=== PATIENT | female | born 1935 | race Caucasian/White ===

== ENCOUNTER 2021-07-28 16:12 | Inpatient (IN) | payer MEDICARE ==
[2021-07-29] MEDS ORDERED: ACETAMINOPHEN 325 MG TAB PO PRN (01:47)
[2021-07-29] MEDS ORDERED: MELATONIN 5 MG TAB PO PRN (01:49)
[2021-07-29] MEDS: traZODone 50 MG TAB PO SCH ×2 (03:36→22:08)
--- NOTE | 2021-07-29 08:09 | History and Physical Report ---
GP History & Physical - History of Present Illness Date of admission: 07/28/21 Date of Examination: 07/29/21 Reason for Admission: Danger to self, Failure of Outpatient Treatment Chief Complaint: suicidal ideation/OD History of Present Illness: The patient is an 85 year old female with history of anxiety disorder who was admitted from [facility] on 1012 for an intentional overdose on Klonopin. The patient was seen today. She is calm, alert and oriented x2 and cooperative. The patient presents with generalized bruises including a black eye. The patient did not want to discuss the event of her recent overdose but states " I wanted to get out of the home." Per note, " the patient overdosed on klonopin after an argument with her daughter." She denies any current suicidal/homicidal ideation and denies hallucinations. PAST PSYCHIATRIC HISTORY: Diagnoses:Anxiety Suicide attempts or Self-harm behavior: Yes- recent Prior psychiatric hospitalizations: Yes- Substance Abuse history:Denies Previous psychiatric medications tried: Klonopin, Trazodone Outpatient treatment: Unknown PAST MEDICAL HISTORY: unknown Family Psychiatric History: None reported or documented SOCIAL HISTORY Marital Status: Single Living Arrangements: Lives in an assisted living Employment Status: Retired Access to guns/weapons:Denies Education:College History of Abuse:denies Legal History: Denies REVIEW OF SYSTEMS Constitutional: Negative for weight loss ENT: Negative for stridor Respiratory: Negative for cough or hemoptysis All other systems reviewed and are negative MENTAL STATUS EXAMINATION General Appearance and Behavior: Age appropriate, good hygiene, wearing appropriate clothes. calm, cooperative Cooperation: Cooperative Psychomotor Behavior: Psychomotor normal Mood:Depressed Affect and affective range: Congruent with stated mood Thought Process: Goal directed Thought Content:Reality oriented Speech: Normal Suicidal Ideation: Denies Homicidal Ideation: Denies Hallucinations: Denies Delusions:Denies Impulse Control: Limited Insight and Judgment: Limited insight and fair judgment Memory: Limited Attention: distracted Orientation: a/o x 3 Assessment (1)Major depressive disorder (2) Current Visit: Yes Status: Acute Treatment Plan Patient admitted for inpatient psychiatric evaluation, medication adjustment an d close monitoring The patient's behavior, mood, sleep and appetite will be closely monitored. Patient enrolled in individual and group therapeutic sessions and encouraged to attend. Patient provided with a safe and structured environment. Patient's physical health needs will be addressed by the Hospitalist. Hospitalist Consulted Labs including CBC, CMP, Lipid profile and Hemoglobin A1C levels ordered for baseline reference Social Assessment will be completed and the Associate Professor Of Medicine will work with patient and family to ensure a suitable and safe disposition Medication adjustment will be made as clinically indicated Continue home medications Usual Wellness [place]ism/Preservation: - Start Trazodone 50 mg po QHS & 50 mg po QHS PRN between 10 PM & 2 AM for i nsomnia - Start Melatonin 5 mg po QHS to promote circadian rhythm The patient agreed on the treatment plan, understood the risk, benefit, alternative treatment, potential consequence of no treatment, and gave informed consent. Estimated days:7 Post hospital care: primary care provider, psychiatric provider Case staffed with Dr. Diggs Legal Status: Voluntary Medications and Allergies Allergies Allergy/AdvReac Type Severity Reaction Status Date / Time No Known Drug Allergies Allergy Unknown Verified 07/29/21 01:30 Home Medications Medication Instructions Recorded Confirmed Last Taken Type Aspirin [[place] Aspirin EC] 81 mg PO DAILY 07/29/21 07/29/21 Unknown History Calcium Carbonate/Mag Carb 400 mg PO BID 07/29/21 07/29/21 Unknown History [Magnebind 400 Tablet] Calcium Carbonate/Vitamin D3 1 each PO DAILY 07/29/21 07/29/21 Unknown History [Calcium 600-Vit D3 400 Tablet] Ferrous Sulfate [Iron 325 MG] 325 mg PO DAILY 07/29/21 07/29/21 Unknown History Lisinopril [Zestril] 5 mg PO DAILY 07/29/21 07/29/21 Unknown History Pantoprazole [Protonix] 40 mg PO QDAY 07/29/21 07/29/21 Unknown History Simvastatin 40 mg PO HS 07/29/21 07/29/21 Unknown History clonazePAM [Klonopin] 1 mg PO BID 07/29/21 07/29/21 Unknown History Active Meds: Active Medications Acetaminophen (Acetaminophen 325 Mg Tab) 650 mg PO Q6H PRN PRN Reason: Pain, Mild (1-3) Aspirin (Aspirin Ec 81 Mg Tab) 81 mg PO DAILY [facility] Ferrous Sulfate (Ferrous Sulfate 325 Mg Tab) 325 mg PO DAILY [facility] Lisinopril (Lisinopril 5 Mg Tab) 5 mg PO DAILY [facility] Melatonin (Melatonin 5 Mg Tab) 5 mg PO QHS PRN PRN Reason: Sleep Miscellaneous Medication (Simvastatin [Simvastatin]) 40 mg PO HS [facility] Miscellaneous Medication (Calcium Carbonate/Vitamin D3 [Calcium 600-Vit D3 400 Tablet]) 1 each PO DAILY [facility] Pantoprazole Sodium (Pantoprazole 40 Mg Tab) 40 mg PO QDAY [facility] Trazodone HCl (Trazodone 50 Mg Tab) 50 mg PO QHS [facility] Last Admin: 07/29/21 03:36 Dose: Not Given Results - Results Labs/Vitals: Last Vital Signs Temp 97.8 F 07/29/21 01:30 Pulse 92 H 07/29/21 01:30 Resp 07/29/21 01:30 BP 102/74 07/29/21 01:30 Pulse Ox 96 07/29/21 01:30 Physical Examination - Constitutional Vitals: Vital Signs Temp Pulse Resp BP Pulse Ox 97.8 F 92 H 17 102/74 96 07/29/21 01:30 07/29/21 01:30 07/29/21 01:30 07/29/21 01:30 07/29/21 01:30 Temperature -Last 24 Hours Temperature 97.8 F Mental Status Exam - Vital signs Last Vital Signs Temp 97.8 F 07/29/21 01:30 Pulse 92 H 07/29/21 01:30 Resp 07/29/21 01:30 BP 102/74 07/29/21 01:30 Pulse Ox 96 07/29/21 01:30 Physician Certification - Certification Statement Physician Certification Statement: This is an acknowledgement statement that TAYLOR SUNSHINE is a 85 year old F who requires inpatient psychiatric admission for treatment which could reasonably be expected to improve the patient's condition for Estimated period of time patient will need to remain in the hospital: [ ] Plan for post-hospital care: [ ]
[2021-07-29] MEDS ORDERED: VITAMIN D3 PO SCH (10:00)
[2021-07-29] MEDS ORDERED: CALCIUM CARBONATE PO SCH (10:00)
[2021-07-29] MEDS ORDERED: [UNRECOGNIZED DRUG - OTHER] PO SCH (10:00)
[2021-07-29] MEDS: LISINOPRIL 5 MG TAB PO SCH (10:13)
[2021-07-29] MEDS: ASPIRIN EC 81 MG TAB PO SCH (10:13)
[2021-07-29] MEDS: FERROUS SULFATE 325 MG TAB PO SCH (10:13)
[2021-07-29] MEDS: CALCIUM CARBONATE/VITAMIN D3 500 MG-200 UNIT TAB PO SCH (10:14)
[2021-07-29] MEDS: PANTOPRAZOLE 40 MG TAB PO SCH (10:14)
[2021-07-29] MEDS ORDERED: MAGNESIUM HYDROXIDE (MOM) ORAL LIQD UDC PO PRN (17:30)
--- NOTE | 2021-07-29 21:03 | Consultation ---
History of Present Illness - Reason for Consult Consult date: 07/29/21 Medical management Requesting physician: MA[facility] - History of Present Illness Very pleasant 85-year-old female patient with significant past medical history of hypertension, dyslipidemia, anxiety disorder, depression, was admitted to [facility] with intentional overdose on Klonopin and history of fall with multiple bruises including contusion supra orbital area of the right eye with superficial small abrasions. For further evaluation and management Hospitalist service was consulted for medical management Past History Past Medical History: hypertension, hyperlipidemia, other (Depression, anxiety) Past Surgical History: No surgical history Social history: smoking (Ex-smoker). denies: alcohol abuse, prescription drug abuse Family history: no significant family history Medications and Allergies Allergies Allergy/AdvReac Type Severity Reaction Status Date / Time No Known Drug Allergies Allergy Unknown Verified 07/29/21 01:30 Home Medications Medication Instructions Recorded Confirmed Last Taken Type Aspirin [[place] Aspirin EC] 81 mg PO DAILY 07/29/21 07/29/21 Unknown History Calcium Carbonate/Mag Carb 400 mg PO BID 07/29/21 07/29/21 Unknown History [Magnebind 400 Tablet] Calcium Carbonate/Vitamin D3 1 each PO DAILY 07/29/21 07/29/21 Unknown History [Calcium 600-Vit D3 400 Tablet] Ferrous Sulfate [Iron 325 MG] 325 mg PO DAILY 07/29/21 07/29/21 Unknown History Lisinopril [Zestril] 5 mg PO DAILY 07/29/21 07/29/21 Unknown History Pantoprazole [Protonix] 40 mg PO QDAY 07/29/21 07/29/21 Unknown History Simvastatin 40 mg PO HS 07/29/21 07/29/21 Unknown History clonazePAM [Klonopin] 1 mg PO BID 07/29/21 07/29/21 Unknown History Active Meds: Active Medications Acetaminophen (Acetaminophen 325 Mg Tab) 650 mg PO Q6H PRN PRN Reason: Pain, Mild (1-3) Aspirin (Aspirin Ec 81 Mg Tab) 81 mg PO DAILY [facility] Last Admin: 07/29/21 10:13 Dose: 81 mg Calcium/Vitamin D (Calcium Carbonate/Vitamin D3 500 Mg-200 Unit Tab) 1 each PO DAILY [facility] Last Admin: 07/29/21 10:14 Dose: 1 each Docusate Sodium (Docusate Sodium 100 Mg Cap) 100 mg PO QDAY [facility] Ferrous Sulfate (Ferrous Sulfate 325 Mg Tab) 325 mg PO DAILY [facility] Last Admin: 07/29/21 10:13 Dose: 325 mg Lisinopril (Lisinopril 5 Mg Tab) 5 mg PO DAILY [facility] Last Admin: 07/29/21 10:13 Dose: Not Given Magnesium Hydroxide (Magnesium Hydroxide (Mom) Oral Liqd Udc) 30 ml PO QDAY PRN PRN Reason: Constipation Melatonin (Melatonin 5 Mg Tab) 5 mg PO QHS PRN PRN Reason: Sleep Pantoprazole Sodium (Pantoprazole 40 Mg Tab) 40 mg PO QDAY [facility] Last Admin: 07/29/21 10:14 Dose: 40 mg Pravastatin Sodium (Pravastatin 80 Mg Tab) 80 mg PO QHS [facility] Trazodone HCl (Trazodone 50 Mg Tab) 50 mg PO QHS [facility] Last Admin: 07/29/21 03:36 Dose: Not Given Review of Systems Constitutional: fatigue, weakness, no weight loss, no weight gain Ears, nose, mouth and throat: no nasal congestion, no nasal discharge Cardiovascular: no chest pain, no shortness of breath Respiratory: no cough, no shortness of breath Gastrointestinal: no abdominal pain, no nausea, no vomiting Musculoskeletal: no myalgias, no arthritis Integumentary: wounds (Right supra orbital area contusion), no rash Neurological: head injury, other (Falls) Psychiatric: anxiety, depression Endocrine: no cold intolerance, no heat intolerance Hematologic/Lymphatic: no easy bruising, no easy bleeding Allergic/Immunologic: no urticaria, no allergic rhinitis Exam - Constitutional Vitals: Temp Pulse Resp BP Pulse Ox 97.8 F 96 H 17 104/51 96 07/29/21 01:30 07/29/21 10:13 07/29/21 01:30 07/29/21 10:13 07/29/21 01:30 General appearance: Present: no acute distress, well-nourished, other (Contusion right eyebrow) - EENT Eyes: Present: PERRL, EOM intact - Neck Neck: Present: supple, normal ROM - Respiratory Respiratory effort: normal Respiratory: bilateral: diminished, negative: rales, rhonchi, wheezing - Cardiovascular Rhythm: regular Heart Sounds: Present: S1 & S2 - Extremities Extremities: no ischemia, No edema - Abdominal General gastrointestinal: Present: soft, non-tender, non-distended, normal bowel sounds - Integumentary Integumentary: Present: clear, warm - Musculoskeletal Musculoskeletal: strength equal bilaterally - Psychiatric Psychiatric: appropriate mood/affect, cooperative - Neurologic Neurologic: moves all extremities Results - Labs CBC & Chem 7: 07/30/21 19:18 07/30/21 19:18 Assessment and Plan --Hypertension; well controlled Continue current antihypertensives As needed medications --S/P fall; Fall precautions, supportive care --Right supraorbital contusion; Wound care as needed Pain medications -Dyslipidemia-; Lipid-lowering medications Low-cholesterol diet -- Depression Current Visit: Yes Status: Acute Management per psych -- Anxiety Current Visit: Yes Status: Acute Management per psych -- Vascular dementia with behavioral disturbance Current Visit: Yes Status: Acute Continue supportive care --Cerebral atherosclerosis Current Visit: Yes Status: Acute Risk factor reduction, antiplatelet therapy is clinically indicated. --DVT prophylaxis ; SCDs while resting Ambulate as tolerated We will closely monitor the patient and adjust management as needed Plan of care reviewed with the patient and her nurse Thank you for this consult We will follow the patient along with you Call us with questions
[2021-07-29] MEDS ORDERED: NON-FORMULARY EACH (Simvastatin [Simvastatin] 40 MG Tablet) PO SCH (22:00)
[2021-07-29] MEDS: PRAVASTATIN 80 MG TAB PO SCH (22:08)
--- NOTE | 2021-07-30 09:34 | Progress Note ---
Subjective Date of service: 07/30/21 Subjective Comment: 07/30/21:The patient was seen this morning. The patient is crying and asking about what happened to her face " who did this to my face." The patient endorsed depression and is confused. She denies any current suicidal/homicidal ideation and denies hallucinations. REVIEW OF SYSTEMS Constitutional: Negative for weight loss ENT: Negative for stridor Respiratory: Negative for cough or hemoptysis All other systems reviewed and are negative MENTAL STATUS EXAMINATION General Appearance and Behavior: Age appropriate, good hygiene, wearing appropriate clothes. calm, cooperative Cooperation: Cooperative Psychomotor Behavior: Psychomotor normal Mood:Depressed/ confused Affect and affective range: Congruent with stated mood Thought Process: Goal directed Thought Content:Reality oriented Speech: Normal Suicidal Ideation: Denies Homicidal Ideation: Denies Hallucinations: Denies Delusions:Denies Impulse Control: Limited Insight and Judgment: Limited insight and fair judgment Memory: Limited Attention: distracted Orientation: a/o x 3 Assessment (1)Major depressive disorder (2) Current Visit: Yes Status: Acute Treatment Plan Patient admitted for inpatient psychiatric evaluation, medication adjustment and close monitoring The patient's behavior, mood, sleep and appetite will be closely monitored. Patient enrolled in individual and group therapeutic sessions and encouraged to attend. Patient provided with a safe and structured environment. Patient's physical health needs will be addressed by the Hospitalist. Hospitalist Consulted Labs including CBC, CMP, Lipid profile and Hemoglobin A1C levels ordered for baseline reference Social Assessment will be completed and the Boxcar Weigher will work with patient and family to ensure a suitable and safe disposition Medication adjustment will be made as clinically indicated Continue home medications Start Effexor 37.5mg po daily Start Vistaril 25mg po Q6H PRN for anxiety Usual Wellness [place]/Preservation: - Start Trazodone 50 mg po QHS & 50 mg po QHS PRN between 10 PM & 2 AM for insomnia - Start Melatonin 5 mg po QHS to promote circadian rhythm The patient agreed on the treatment plan, understood the risk, benefit, alternative treatment, potential consequence of no treatment, and gave informed consent. Estimated days:6 Post hospital care: primary care provider, psychiatric provider Case staffed with Dr. Diggs Legal Status: Voluntary Medications and Allergies Medications and Allergies Allergies Allergy/AdvReac Type Severity Reaction Status Date / Time No Known Drug Allergies Allergy Unknown Verified 07/29/21 01:30 Home Medications Medication Instructions Recorded Confirmed Last Taken Type Aspirin [[place] Aspirin EC] 81 mg PO DAILY 07/29/21 07/29/21 Unknown History Calcium Carbonate/Mag Carb 400 mg PO BID 07/29/21 07/29/21 Unknown History [Magnebind 400 Tablet] Calcium Carbonate/Vitamin D3 1 each PO DAILY 07/29/21 07/29/21 Unknown History [Calcium 600-Vit D3 400 Tablet] Ferrous Sulfate [Iron 325 MG] 325 mg PO DAILY 07/29/21 07/29/21 Unknown History Lisinopril [Zestril] 5 mg PO DAILY 07/29/21 07/29/21 Unknown History Pantoprazole [Protonix] 40 mg PO QDAY 07/29/21 07/29/21 Unknown History Simvastatin 40 mg PO HS 07/29/21 07/29/21 Unknown History clonazePAM [Klonopin] 1 mg PO BID 07/29/21 07/29/21 Unknown History Active Meds: Active Medications Acetaminophen (Acetaminophen 325 Mg Tab) 650 mg PO Q6H PRN PRN Reason: Pain, Mild (1-3) Aspirin (Aspirin Ec 81 Mg Tab) 81 mg PO DAILY [facility] Last Admin: 07/29/21 10:13 Dose: 81 mg Calcium/Vitamin D (Calcium Carbonate/Vitamin D3 500 Mg-200 Unit Tab) 1 each PO DAILY [facility] Last Admin: 07/29/21 10:14 Dose: 1 each Docusate Sodium (Docusate Sodium 100 Mg Cap) 100 mg PO QDAY [facility] Ferrous Sulfate (Ferrous Sulfate 325 Mg Tab) 325 mg PO DAILY [facility] Last Admin: 07/29/21 10:13 Dose: 325 mg Lisinopril (Lisinopril 5 Mg Tab) 5 mg PO DAILY [facility] Last Admin: 07/29/21 10:13 Dose: Not Given Magnesium Hydroxide (Magnesium Hydroxide (Mom) Oral Liqd Udc) 30 ml PO QDAY PRN PRN Reason: Constipation Melatonin (Melatonin 5 Mg Tab) 5 mg PO QHS PRN PRN Reason: Sleep Pantoprazole Sodium (Pantoprazole 40 Mg Tab) 40 mg PO QDAY [facility] Last Admin: 07/29/21 10:14 Dose: 40 mg Pravastatin Sodium (Pravastatin 80 Mg Tab) 80 mg PO QHS [facility] Last Admin: 07/29/21 22:08 Dose: 80 mg Trazodone HCl (Trazodone 50 Mg Tab) 50 mg PO QHS [facility] Last Admin: 07/29/21 22:08 Dose: Not Given Results - Results Labs/Vitals: Last Vital Signs Temp 98.8 F 07/29/21 22:00 Pulse 76 07/29/21 22:00 Resp 20 07/29/21 22:00 BP 86/43 07/29/21 21:30 Pulse Ox 100 07/29/21 22:00
[2021-07-30] MEDS ORDERED: hydrOXYzine PAMOATE 25 MG CAP PO PRN (10:00)
[2021-07-30] MEDS: ASPIRIN EC 81 MG TAB PO SCH (10:54)
[2021-07-30] MEDS: FERROUS SULFATE 325 MG TAB PO SCH (10:54)
[2021-07-30] MEDS: DOCUSATE SODIUM 100 MG CAP PO SCH (10:54)
[2021-07-30] MEDS: PANTOPRAZOLE 40 MG TAB PO SCH (10:55)
[2021-07-30] MEDS: CALCIUM CARBONATE/VITAMIN D3 500 MG-200 UNIT TAB PO SCH (10:55)
[2021-07-30] MEDS: LISINOPRIL 5 MG TAB PO SCH (10:56)
[2021-07-30] MEDS: VENLAFAXINE 37.5 MG TAB PO SCH (11:22)
--- NOTE | 2021-07-30 17:52 | Event Note ---
Date: 07/30/21 Attempted to reach Patient's son Dr. Desai @[phone] and also daughter Cintia @ [phone]- no response but I left a message.
[2021-07-30 18:34] LABS: Bilirubin,Urine NEG (Negative); Blood,Urine NEG (Negative); Color,Urine Yellow (Yellow); Mucus,Urine FEW /HPF; Protein,Urine <15 mg/dL mg/dL (Negative); Urobilinogen,Urine < 2.0 mg/dL (<2.0)
[2021-07-30 20:21] LABS: Basophils # (Auto) 0.1 K/mm3 (0.0-0.1); Basophils % (Auto) 1.1 % (0.0-1.8); Eosinophils # (Auto) 0.3 K/mm3 (0.0-0.4); Eosinophils % (Auto) 3.9 % (0.0-4.3); Lymphocytes # (Auto) 1.4 K/mm3 (1.2-5.4); Mean Corpuscular HGB Conc 30 % (30-34); Monocytes # (Auto) 0.7 K/mm3 (0.0-0.8); Monocytes % (Auto) 8.8 % (0.0-7.3); Platelet Count 712 K/mm3 (140-440); Red Blood Count 5.11 M/mm3 (3.65-5.03); Red Cell Distribution Width 19.6 % (13.2-15.2)
[2021-07-30 20:24] LABS: Hematocrit 34.7 % (30.3-42.9); Hemoglobin 10.3 gm/dl (10.1-14.3); Mean Corpuscular Volume 68 fl (79-97)
[2021-07-30 20:42] LABS: Albumin 3.9 g/dL (3.9-5); Calcium 10.2 mg/dL (8.4-10.2)
[2021-07-30] MEDS: traZODone 50 MG TAB PO SCH (21:40)
[2021-07-30] MEDS: PRAVASTATIN 80 MG TAB PO SCH (21:40)
--- NOTE | 2021-07-31 08:49 | Progress Note ---
Subjective Date of service: 07/31/21 Subjective Comment: 07/30/21:The patient was seen this morning. The patient is crying and asking about what happened to her face " who did this to my face." The patient endorsed depression and is confused. She denies any current suicidal/homicidal ideation a nd denies hallucinations. 07/31/21: The patient was seen this morning. She presents in good spirits. She states sleep as fair. The patient denies being depressed or having excessive anxiety. The patient denies any current suicidal/homicidal ideation and denies hallucinations. This technical publications writer spoke with the patient's son Aby and he agrees with the current treatment plan. Plan to discharge by Wednesday. REVIEW OF SYSTEMS Constitutional: Negative for weight loss ENT: Negative for stridor Respiratory: Negative for cough or hemoptysis All other systems reviewed and are negative MENTAL STATUS EXAMINATION General Appearance and Behavior: Age appropriate, good hygiene, wearing appropriate clothes. calm, cooperative Cooperation: Cooperative Psychomotor Behavior: Psychomotor normal Mood:"ok Affect and affective range: Congruent with stated mood Thought Process: Goal directed Thought Content:Reality oriented Speech: Normal Suicidal Ideation: Denies Homicidal Ideation: Denies Hallucinations: Denies Delusions:Denies Impulse Control: Limited Insight and Judgment: Limited insight and fair judgment Memory: Limited Attention: distracted Orientation: a/o x 3 Assessment (1)Major depressive disorder (2) Current Visit: Yes Status: Acute Treatment Plan Patient admitted for inpatient psychiatric evaluation, medication adjustment and close monitoring The patient's behavior, mood, sleep and appetite will be closely monitored. Patient enrolled in individual and group therapeutic sessions and encouraged to attend. Patient provided with a safe and structured environment. Patient's physical health needs will be addressed by the Hospitalist. Hospitalist Consulted Labs including CBC, CMP, Lipid profile and Hemoglobin A1C levels ordered for baseline reference Social Assessment will be completed and the Production Assistant will work with patient and family to ensure a suitable and safe disposition Medication adjustment will be made as clinically indicated Continue home medications Continue Effexor 37.5mg po daily Continue Vistaril 25mg po Q6H PRN for anxiety Usual Wellness Tenriism/Preservation: - Start Trazodone 50 mg po QHS & 50 mg po QHS PRN between 10 PM & 2 AM for insomnia - Start Melatonin 5 mg po QHS to promote circadian rhythm The patient agreed on the treatment plan, understood the risk, benefit, alternative treatment, potential consequence of no treatment, and gave informed consent. Estimated days:5 Post hospital care: primary care provider, psychiatric provider Case staffed with Dr. Diggs Legal Status: Voluntary Medications and Allergies Medications and Allergies Allergies Allergy/AdvReac Type Severity Reaction Status Date / Time No Known Drug Allergies Allergy Unknown Verified 07/29/21 01:30 Home Medications Medication Instructions Recorded Confirmed Last Taken Type Aspirin [[place] Aspirin EC] 81 mg PO DAILY 07/29/21 07/29/21 Unknown History Calcium Carbonate/Mag Carb 400 mg PO BID 07/29/21 07/29/21 Unknown History [Magnebind 400 Tablet] Calcium Carbonate/Vitamin D3 1 each PO DAILY 07/29/21 07/29/21 Unknown History [Calcium 600-Vit D3 400 Tablet] Ferrous Sulfate [Iron 325 MG] 325 mg PO DAILY 07/29/21 07/29/21 Unknown History Lisinopril [Zestril] 5 mg PO DAILY 07/29/21 07/29/21 Unknown History Pantoprazole [Protonix] 40 mg PO QDAY 07/29/21 07/29/21 Unknown History Simvastatin 40 mg PO HS 07/29/21 07/29/21 Unknown History clonazePAM [Klonopin] 1 mg PO BID 07/29/21 07/29/21 Unknown History Active Meds: Active Medications Acetaminophen (Acetaminophen 325 Mg Tab) 650 mg PO Q6H PRN PRN Reason: Pain, Mild (1-3) Aspirin (Aspirin Ec 81 Mg Tab) 81 mg PO DAILY [facility] Last Admin: 07/30/21 10:54 Dose: 81 mg Calcium/Vitamin D (Calcium Carbonate/Vitamin D3 500 Mg-200 Unit Tab) 1 each PO DAILY [facility] Last Admin: 07/30/21 10:55 Dose: 1 each Docusate Sodium (Docusate Sodium 100 Mg Cap) 100 mg PO QDAY [facility] Last Admin: 07/30/21 10:54 Dose: 100 mg Ferrous Sulfate (Ferrous Sulfate 325 Mg Tab) 325 mg PO DAILY [facility] Last Admin: 07/30/21 10:54 Dose: 325 mg Hydroxyzine Pamoate (Hydroxyzine Pamoate 25 Mg Cap) 25 mg PO Q6H PRN PRN Reason: Anxiety Lisinopril (Lisinopril 5 Mg Tab) 5 mg PO DAILY [facility] Last Admin: 07/30/21 10:56 Dose: Not Given Magnesium Hydroxide (Magnesium Hydroxide (Mom) Oral Liqd Udc) 30 ml PO QDAY PRN PRN Reason: Constipation Melatonin (Melatonin 5 Mg Tab) 5 mg PO QHS PRN PRN Reason: Sleep Pantoprazole Sodium (Pantoprazole 40 Mg Tab) 40 mg PO QDAY [facility] Last Admin: 07/30/21 10:55 Dose: 40 mg Pravastatin Sodium (Pravastatin 80 Mg Tab) 80 mg PO QHS [facility] Last Admin: 07/30/21 21:40 Dose: 80 mg Trazodone HCl (Trazodone 50 Mg Tab) 50 mg PO QHS [facility] Last Admin: 07/30/21 21:40 Dose: 50 mg Venlafaxine HCl (Venlafaxine 37.5 Mg Tab) 37.5 mg PO DAILY [facility] Last Admin: 07/30/21 11:22 Dose: 37.5 mg Results - Results Labs/Vitals: Laboratory Last Values WBC 8.1 K/mm3 (4.5-11.0) 07/30/21 19:18 RBC 5.11 M/mm3 (3.65-5.03) H 07/30/21 19:18 Hgb 10.3 gm/dl (10.1-14.3) 07/30/21 19:18 Hct 34.7 % (30.3-42.9) 07/30/21 19:18 MCV 68 fl (79-97) L 07/30/21 19:18 MCH 20 pg (28-32) L 07/30/21 19:18 MCHC 30 % (30-34) 07/30/21 19:18 RDW 19.6 % (13.2-15.2) H 07/30/21 19:18 Plt Count 712 K/mm3 (140-440) H 07/30/21 19:18 Lymph % (Auto) 17.0 % (13.4-35.0) 07/30/21 19:18 [place] % (Auto) 8.8 % (0.0-7.3) H 07/30/21 19:18 Eos % (Auto) 3.9 % (0.0-4.3) 07/30/21 19:18 Baso % (Auto) 1.1 % (0.0-1.8) 07/30/21 19:18 Lymph # (Auto) 1.4 K/mm3 (1.2-5.4) 07/30/21 19:18 [place] # (Auto) 0.7 K/mm3 (0.0-0.8) 07/30/21 19:18 Eos # (Auto) 0.3 K/mm3 (0.0-0.4) 07/30/21 19:18 Baso # (Auto) 0.1 K/mm3 (0.0-0.1) 07/30/21 19:18 Seg Neutrophils % 69.2 % (40.0-70.0) 07/30/21 19:18 Seg Neutrophils # 5.6 K/mm3 (1.8-7.7) 07/30/21 19:18 Sodium 142 mmol/L (137-145) 07/30/21 19:18 Potassium 4.2 mmol/L (3.6-5.0) 07/30/21 19:18 Chloride 102.7 mmol/L (98-107) 07/30/21 19:18 Carbon Dioxide 25 mmol/L (22-30) 07/30/21 19:18 Anion Gap 19 mmol/L 07/30/21 19:18 BUN 44 mg/dL (7-17) H 07/30/21 19:18 Creatinine 1.2 mg/dL (0.6-1.2) 07/30/21 19:18 Estimated GFR 43 ml/min 07/30/21 19:18 BUN/Creatinine Ratio 37 % 07/30/21 19:18 Glucose 105 mg/dL (65-100) H 07/30/21 19:18 Hemoglobin A1c 5.6 % (4-6) 07/30/21 19:18 Calcium 10.2 mg/dL (8.4-10.2) 07/30/21 19:18 Total Bilirubin 0.40 mg/dL (0.1-1.2) 07/30/21 19:18 AST 25 units/L (5-40) 07/30/21 19:18 ALT 19 units/L (7-56) 07/30/21 19:18 Alkaline Phosphatase 69 units/L (35-129) 07/30/21 19:18 Total Protein 6.4 g/dL (6.3-8.2) 07/30/21 19:18 Albumin 3.9 g/dL (3.9-5) 07/30/21 19:18 Albumin/Globulin Ratio 1.6 % 07/30/21 19:18 TSH 1.330 mlU/mL (0.270-4.200) 07/30/21 19:18 Urine Color Yellow (Yellow) 07/30/21 17: Urine Turbidity Clear (Clear) 07/30/21 17: Urine pH 5.0 (5.0-7.0) 07/30/21 17: Ur Specific [place] 1.017 (1.003-1.030) 07/30/21 17: Urine Protein <15 mg/dl mg/dL (Negative) 07/30/21 17: Urine Glucose (UA) Neg mg/dL (Negative) 07/30/21 17: Urine Ketones Neg mg/dL (Negative) 07/30/21 17: Urine Blood Neg (Negative) 07/30/21 17: Urine Nitrite Neg (Negative) 07/30/21: Ur Reducing Substances Not Reportable 07/30/21 17: Urine Bilirubin Neg (Negative) 07/30/21 17: Urine Ictotest Not Reportable 07/30/21: Urine Urobilinogen < 2.0 mg/dL (<2.0) 07/30/21 17: Ur Leukocyte Esterase Tr (Negative) 07/30/21 17: Urine WBC (Auto) 7.0 /HPF (0.0-6.0) H 07/30/21 17: Urine RBC (Auto) 2.0 /HPF (0.0-6.0) 07/30/21: U Epithel Cells (Auto) < 1.0 /HPF (0-13.0) 07/30/21 17: Urine Mucus Few /HPF 07/30/21 17:23 Last Vital Signs Temp 98.4 F 07/30/21 20:17 Pulse 85 07/30/21 20:17 Resp 16 07/30/21 20:17 BP 92/65 07/30/21 20:17 Pulse Ox 96 07/30/21 20:17
[2021-07-31] MEDS: LISINOPRIL 5 MG TAB PO SCH (09:20)
[2021-07-31] MEDS: CALCIUM CARBONATE/VITAMIN D3 500 MG-200 UNIT TAB PO SCH (09:20)
[2021-07-31] MEDS: PANTOPRAZOLE 40 MG TAB PO SCH (09:20)
[2021-07-31] MEDS: ASPIRIN EC 81 MG TAB PO SCH (09:20)
[2021-07-31] MEDS: VENLAFAXINE 37.5 MG TAB PO SCH (09:20)
[2021-07-31] MEDS: FERROUS SULFATE 325 MG TAB PO SCH (09:20)
[2021-07-31] MEDS: DOCUSATE SODIUM 100 MG CAP PO SCH (09:24)
--- NOTE | 2021-07-31 10:22 | Progress Note ---
Assessment and Plan - Patient Problems (1) Vascular dementia with behavioral disturbance Current Visit: Yes Status: Acute Plan to address problem: Verbal prompting, verbal redirection, benzodiazepine therapy as clinically indicated. (2) Cerebral atherosclerosis Current Visit: Yes Status: Acute Plan to address problem: Risk factor reduction, antiplatelet therapy is clinically indicated. (3) Depression Current Visit: Yes Status: Acute Plan to address problem: Continue medical management, supportive care. (4) Anxiety Current Visit: Yes Status: Acute Plan to address problem: Benzodiazepine therapy as clinically indicated, supportive care. (5) Advance care planning Current Visit: Yes Status: Acute Plan to address problem: Disease restaging data, care plan discussed, diagnosis discussed, prognosis discussed, +30 minutes. History Interval history: 85 YO Female with Vascular Dementia with Behavioral disturbance, Cerebral Atheroaclerosis, MDD, JOHNATHAN admitted to [facility] for Psychiatric stabilization. Consult placed by Dr. Santos for medical management. Pt seen and evaluated in the recreation room. No reported nursing events. Patient denies pain. Hospitalist Physical - Constitutional Vitals: Temp Pulse Resp BP Pulse Ox 98.9 F 87 18 146/73 94 07/31/21 08:19 07/31/21 09:20 07/31/21 08:19 07/31/21 09:20 07/31/21 08:19 General appearance: Present: no acute distress - EENT Eyes: Present: PERRL ENT: dentition normal - Neck Neck: Present: supple - Respiratory Respiratory effort: normal Respiratory: bilateral: CTA - Cardiovascular Rhythm: regular Heart Sounds: Present: S1 & S2 - Extremities Extremities: no ischemia Peripheral Pulses: within normal limits - Abdominal General gastrointestinal: soft, non-tender, non-distended - Integumentary Integumentary: Present: clear, dry - Psychiatric Psychiatric: cooperative - Neurologic Neurologic: CNII-XII intact Results - Labs CBC & Chem 7: 07/30/21 19:18 07/30/21 19:18 Labs: Laboratory Last Values WBC 8.1 K/mm3 (4.5-11.0) 07/30/21 19:18 RBC 5.11 M/mm3 (3.65-5.03) H 07/30/21 19:18 Hgb 10.3 gm/dl (10.1-14.3) 07/30/21 19:18 Hct 34.7 % (30.3-42.9) 07/30/21 19:18 MCV 68 fl (79-97) L 07/30/21 19:18 MCH 20 pg (28-32) L 07/30/21 19:18 MCHC 30 % (30-34) 07/30/21 19:18 RDW 19.6 % (13.2-15.2) H 07/30/21 19:18 Plt Count 712 K/mm3 (140-440) H 07/30/21 19:18 Lymph % (Auto) 17.0 % (13.4-35.0) 07/30/21 19:18 [place] % (Auto) 8.8 % (0.0-7.3) H 07/30/21 19:18 Eos % (Auto) 3.9 % (0.0-4.3) 07/30/21 19:18 Baso % (Auto) 1.1 % (0.0-1.8) 07/30/21 19:18 Lymph # (Auto) 1.4 K/mm3 (1.2-5.4) 07/30/21 19:18 [place] # (Auto) 0.7 K/mm3 (0.0-0.8) 07/30/21 19:18 Eos # (Auto) 0.3 K/mm3 (0.0-0.4) 07/30/21 19:18 Baso # (Auto) 0.1 K/mm3 (0.0-0.1) 07/30/21 19:18 Seg Neutrophils % 69.2 % (40.0-70.0) 07/30/21 19:18 Seg Neutrophils # 5.6 K/mm3 (1.8-7.7) 07/30/21 19:18 Sodium 142 mmol/L (137-145) 07/30/21 19:18 Potassium 4.2 mmol/L (3.6-5.0) 07/30/21 19:18 Chloride 102.7 mmol/L (98-107) 07/30/21 19:18 Carbon Dioxide 25 mmol/L (22-30) 07/30/21 19:18 Anion Gap 19 mmol/L 07/30/21 19:18 BUN 44 mg/dL (7-17) H 07/30/21 19:18 Creatinine 1.2 mg/dL (0.6-1.2) 07/30/21 19:18 Estimated GFR 43 ml/min 07/30/21 19:18 BUN/Creatinine Ratio 37 % 07/30/21 19:18 Glucose 105 mg/dL (65-100) H 07/30/21 19:18 Hemoglobin A1c 5.6 % (4-6) 07/30/21 19:18 Calcium 10.2 mg/dL (8.4-10.2) 07/30/21 19:18 Total Bilirubin 0.40 mg/dL (0.1-1.2) 07/30/21 19:18 AST 25 units/L (5-40) 07/30/21 19:18 ALT 19 units/L (7-56) 07/30/21 19:18 Alkaline Phosphatase 69 units/L (35-129) 07/30/21 19:18 Total Protein 6.4 g/dL (6.3-8.2) 07/30/21 19:18 Albumin 3.9 g/dL (3.9-5) 07/30/21 19:18 Albumin/Globulin Ratio 1.6 % 07/30/21 19:18 TSH 1.330 mlU/mL (0.270-4.200) 07/30/21 19:18 Urine Color Yellow (Yellow) 07/30/21 17:23 Urine Turbidity Clear (Clear) 07/30/21 17:23 Urine pH 5.0 (5.0-7.0) 07/30/21 17:23 Ur Specific [place] 1.017 (1.003-1.030) 07/30/21 17: Urine Protein <15 mg/dl mg/dL (Negative) 07/30/21 17:23 Urine Glucose (UA) Neg mg/dL (Negative) 07/30/21 17:23 Urine Ketones Neg mg/dL (Negative) 07/30/21 17: Urine Blood Neg (Negative) 07/30/21 17: Urine Nitrite Neg (Negative) 07/30/21 17: Ur Reducing Substances Not Reportable 07/30/21 17: Urine Bilirubin Neg (Negative) 07/30/21: Urine Ictotest Not Reportable 07/30/21: Urine Urobilinogen < 2.0 mg/dL (<2.0) 07/30/21 17:23 Ur Leukocyte Esterase Tr (Negative) 07/30/21 17:23 Urine WBC (Auto) 7.0 /HPF (0.0-6.0) H 07/30/21 17:23 Urine RBC (Auto) 2.0 /HPF (0.0-6.0) 07/30/21 17:23 U Epithel Cells (Auto) < 1.0 /HPF (0-13.0) 07/30/21 17:23 Urine Mucus Few /HPF 07/30/21 17:23 Rushing/IV: Voiding Method Toilet Active Medications - Current Medications Current Medications: Generic Name Dose Route Start Last Admin Trade Name Freq PRN Reason Stop Dose Admin Acetaminophen 650 mg 07/29/21 01:47 Acetaminophen 325 Mg Tab PO Q6H PRN Pain, Mild (1-3) Aspirin 81 mg 07/29/21 10:00 07/31/21 09:20 Aspirin Ec 81 Mg Tab PO 81 mg DAILY [facility] Administration Calcium/Vitamin D 1 each 07/29/21 10:00 07/31/21 09:20 Calcium Carbonate/Vitamin D3 500 Mg-200 Unit Tab PO 1 each DAILY [facility] Administration Docusate Sodium 100 mg 07/30/21 10:00 07/31/21 09:24 Docusate Sodium 100 Mg Cap PO Not Given QDAY [facility] Ferrous Sulfate 325 mg 07/29/21 10:00 07/31/21 09:20 Ferrous Sulfate 325 Mg Tab PO 325 mg DAILY [facility] Administration Hydroxyzine Pamoate 25 mg 07/30/21 10:00 Hydroxyzine Pamoate 25 Mg Cap PO Q6H PRN Anxiety Lisinopril 5 mg 07/29/21 10:00 07/31/21 09:20 Lisinopril 5 Mg Tab PO 5 mg DAILY [facility] Administration Magnesium Hydroxide 30 ml 07/29/21 17:30 Magnesium Hydroxide (Mom) Oral Liqd Udc PO QDAY PRN Constipation Melatonin 5 mg 07/29/21 01:49 Melatonin 5 Mg Tab PO QHS PRN Sleep Pantoprazole Sodium 40 mg 07/29/21 10:00 07/31/21 09:20 Pantoprazole 40 Mg Tab PO 40 mg QDAY [facility] Administration Pravastatin Sodium 80 mg 07/29/21 22:00 07/30/21 21:40 Pravastatin 80 Mg Tab PO 80 mg QHS [facility] Administration Trazodone HCl 50 mg 07/29/21 01:49 07/30/21 21:40 Trazodone 50 Mg Tab PO 50 mg QHS [facility] Administration Venlafaxine HCl 37.5 mg 07/30/21 11:00 07/31/21 09:20 Venlafaxine 37.5 Mg Tab PO 37.5 mg DAILY [facility] Administration
--- NOTE | 2021-07-31 10:26 | Progress Note ---
Assessment and Plan - Patient Problems (1) Vascular dementia with behavioral disturbance Current Visit: Yes Status: Acute Plan to address problem: Verbal prompting, verbal redirection, benzodiazepine therapy as clinically indicated. (2) Cerebral atherosclerosis Current Visit: Yes Status: Acute Plan to address problem: Risk factor reduction, antiplatelet therapy is clinically indicated. (3) Depression Current Visit: Yes Status: Acute Plan to address problem: Continue medical management, supportive care. (4) Anxiety Current Visit: Yes Status: Acute Plan to address problem: Benzodiazepine therapy as clinically indicated, supportive care. (5) Advance care planning Current Visit: Yes Status: Acute Plan to address problem: Disease restaging data, care plan discussed, diagnosis discussed, prognosis discussed, +30 minutes. History Interval history: 85 YO Female with Vascular Dementia with Behavioral disturbance, Cerebral Atheroaclerosis, MDD, JOHNATHAN admitted to [facility] for Psychiatric stabilization. Consult placed by Dr. Santos for medical management. Pt seen and evaluated in the recreation room. No reported nursing events. Patient denies pain. Hospitalist Physical - Constitutional Vitals: Temp Pulse Resp BP Pulse Ox 98.9 F 87 18 146/73 94 07/31/21 08:19 07/31/21 09:20 07/31/21 08:19 07/31/21 09:20 07/31/21 08:19 General appearance: Present: no acute distress - EENT Eyes: Present: PERRL ENT: hearing decreased - Neck Neck: Present: supple - Respiratory Respiratory effort: normal Respiratory: bilateral: CTA - Cardiovascular Rhythm: regular Heart Sounds: Present: S1 & S2 - Extremities Extremities: no ischemia Peripheral Pulses: within normal limits - Abdominal General gastrointestinal: soft, non-tender, non-distended - Integumentary Integumentary: Present: clear, dry - Psychiatric Psychiatric: cooperative - Neurologic Neurologic: CNII-XII intact Results - Labs CBC & Chem 7: 07/30/21 19:18 07/30/21 19:18 Labs: Laboratory Last Values WBC 8.1 K/mm3 (4.5-11.0) 07/30/21 19:18 RBC 5.11 M/mm3 (3.65-5.03) H 07/30/21 19:18 Hgb 10.3 gm/dl (10.1-14.3) 07/30/21 19:18 Hct 34.7 % (30.3-42.9) 07/30/21 19:18 MCV 68 fl (79-97) L 07/30/21 19:18 MCH 20 pg (28-32) L 07/30/21 19:18 MCHC 30 % (30-34) 07/30/21 19:18 RDW 19.6 % (13.2-15.2) H 07/30/21 19:18 Plt Count 712 K/mm3 (140-440) H 07/30/21 19:18 Lymph % (Auto) 17.0 % (13.4-35.0) 07/30/21 19:18 [place] % (Auto) 8.8 % (0.0-7.3) H 07/30/21 19:18 Eos % (Auto) 3.9 % (0.0-4.3) 07/30/21 19:18 Baso % (Auto) 1.1 % (0.0-1.8) 07/30/21 19:18 Lymph # (Auto) 1.4 K/mm3 (1.2-5.4) 07/30/21 19:18 [place] # (Auto) 0.7 K/mm3 (0.0-0.8) 07/30/21 19:18 Eos # (Auto) 0.3 K/mm3 (0.0-0.4) 07/30/21 19:18 Baso # (Auto) 0.1 K/mm3 (0.0-0.1) 07/30/21 19:18 Seg Neutrophils % 69.2 % (40.0-70.0) 07/30/21 19:18 Seg Neutrophils # 5.6 K/mm3 (1.8-7.7) 07/30/21 19:18 Sodium 142 mmol/L (137-145) 07/30/21 19:18 Potassium 4.2 mmol/L (3.6-5.0) 07/30/21 19:18 Chloride 102.7 mmol/L (98-107) 07/30/21 19:18 Carbon Dioxide 25 mmol/L (22-30) 07/30/21 19:18 Anion Gap 19 mmol/L 07/30/21 19:18 BUN 44 mg/dL (7-17) H 07/30/21 19:18 Creatinine 1.2 mg/dL (0.6-1.2) 07/30/21 19:18 Estimated GFR 43 ml/min 07/30/21 19:18 BUN/Creatinine Ratio 37 % 07/30/21 19:18 Glucose 105 mg/dL (65-100) H 07/30/21 19:18 Hemoglobin A1c 5.6 % (4-6) 07/30/21 19:18 Calcium 10.2 mg/dL (8.4-10.2) 07/30/21 19:18 Total Bilirubin 0.40 mg/dL (0.1-1.2) 07/30/21 19:18 AST 25 units/L (5-40) 07/30/21 19:18 ALT 19 units/L (7-56) 07/30/21 19:18 Alkaline Phosphatase 69 units/L (35-129) 07/30/21 19:18 Total Protein 6.4 g/dL (6.3-8.2) 07/30/21 19:18 Albumin 3.9 g/dL (3.9-5) 07/30/21 19:18 Albumin/Globulin Ratio 1.6 % 07/30/21 19:18 TSH 1.330 mlU/mL (0.270-4.200) 07/30/21 19:18 Urine Color Yellow (Yellow) 07/30/21 17:23 Urine Turbidity Clear (Clear) 07/30/21 17: Urine pH 5.0 (5.0-7.0) 07/30/21 17:23 Ur Specific [place] 1.017 (1.003-1.030) 07/30/21 17: Urine Protein <15 mg/dl mg/dL (Negative) 07/30/21 17:23 Urine Glucose (UA) Neg mg/dL (Negative) 07/30/21 17:23 Urine Ketones Neg mg/dL (Negative) 07/30/21 17: Urine Blood Neg (Negative) 07/30/21 17: Urine Nitrite Neg (Negative) 07/30/21 17:23 Ur Reducing Substances Not Reportable 07/30/21 17: Urine Bilirubin Neg (Negative) 07/30/21 17: Urine Ictotest Not Reportable 07/30/21: Urine Urobilinogen < 2.0 mg/dL (<2.0) 07/30/21 17:23 Ur Leukocyte Esterase Tr (Negative) 07/30/21 17:23 Urine WBC (Auto) 7.0 /HPF (0.0-6.0) H 07/30/21 17:23 Urine RBC (Auto) 2.0 /HPF (0.0-6.0) 07/30/21 17:23 U Epithel Cells (Auto) < 1.0 /HPF (0-13.0) 07/30/21 17:23 Urine Mucus Few /HPF 07/30/21 17:23 Rushing/IV: Voiding Method Toilet Active Medications - Current Medications Current Medications: Generic Name Dose Route Start Last Admin Trade Name Freq PRN Reason Stop Dose Admin Acetaminophen 650 mg 07/29/21 01:47 Acetaminophen 325 Mg Tab PO Q6H PRN Pain, Mild (1-3) Aspirin 81 mg 07/29/21 10:00 07/31/21 09:20 Aspirin Ec 81 Mg Tab PO 81 mg DAILY [facility] Administration Calcium/Vitamin D 1 each 07/29/21 10:00 07/31/21 09:20 Calcium Carbonate/Vitamin D3 500 Mg-200 Unit Tab PO 1 each DAILY [facility] Administration Docusate Sodium 100 mg 07/30/21 10:00 07/31/21 09:24 Docusate Sodium 100 Mg Cap PO Not Given QDAY [facility] Ferrous Sulfate 325 mg 07/29/21 10:00 07/31/21 09:20 Ferrous Sulfate 325 Mg Tab PO 325 mg DAILY [facility] Administration Hydroxyzine Pamoate 25 mg 07/30/21 10:00 Hydroxyzine Pamoate 25 Mg Cap PO Q6H PRN Anxiety Lisinopril 5 mg 07/29/21 10:00 07/31/21 09:20 Lisinopril 5 Mg Tab PO 5 mg DAILY [facility] Administration Magnesium Hydroxide 30 ml 07/29/21 17:30 Magnesium Hydroxide (Mom) Oral Liqd Udc PO QDAY PRN Constipation Melatonin 5 mg 07/29/21 01:49 Melatonin 5 Mg Tab PO QHS PRN Sleep Miscellaneous Medication 400 mg 07/31/21 22:00 Calcium Carbonate/Mag Carb [Magnebind 400 Tablet] PO BID [facility] Miscellaneous Medication 1 mg 07/31/21 22:00 Clonazepam [Klonopin] PO BID [facility] Pantoprazole Sodium 40 mg 07/29/21 10:00 07/31/21 09:20 Pantoprazole 40 Mg Tab PO 40 mg QDAY [facility] Administration Pravastatin Sodium 80 mg 07/29/21 22:00 07/30/21 21:40 Pravastatin 80 Mg Tab PO 80 mg QHS [facility] Administration Trazodone HCl 50 mg 07/29/21 01:49 07/30/21 21:40 Trazodone 50 Mg Tab PO 50 mg QHS [facility] Administration Venlafaxine HCl 37.5 mg 07/30/21 11:00 07/31/21 09:20 Venlafaxine 37.5 Mg Tab PO 37.5 mg DAILY [facility] Administration
[2021-07-31] MEDS: clonazePAM 0.5 MG TAB PO SCH (21:23)
[2021-07-31] MEDS: traZODone 50 MG TAB PO SCH (21:24)
[2021-07-31] MEDS: PRAVASTATIN 80 MG TAB PO SCH (21:24)
[2021-07-31] MEDS ORDERED: MAG CARB PO SCH (22:00)
[2021-07-31] MEDS ORDERED: NON-FORMULARY EACH (Clonazepam [Klonopin] 1 MG Tablet) PO SCH (22:00)
[2021-07-31] MEDS ORDERED: CALCIUM CARBONATE PO SCH (22:00)
--- NOTE | 2021-08-01 08:44 | Progress Note ---
Subjective Date of service: 08/01/21 Principal diagnosis: MDD Subjective Comment: The patient was seen today. She is confused. She is calm, cooperative and pleasant. She is sitting in the dayroom reading a book. She says "I'm doing fine" when asked. She denies SI/HI or hallucinations of any kind. Staff says the patient has some difficulty sleeping. Although the patient currently denies SI. She had a recent suicidal attempt by OD. Will continue to treat and monitor her to ensure safety upon discharge. REVIEW OF SYSTEMS Constitutional: Negative for weight loss ENT: Negative for stridor Respiratory: Negative for cough or hemoptysis All other systems reviewed and are negative MENTAL STATUS EXAMINATION General Appearance and Behavior: Age appropriate, good hygiene, wearing appropriate clothes. calm, cooperative, pleasant Cooperation: Cooperative Psychomotor Behavior: Psychomotor normal Mood: fine Affect and affective range: Congruent with stated mood Thought Process: impaired Thought Content: Reality oriented Speech: Normal tone and pace Suicidal Ideation: Denies Homicidal Ideation: Denies Hallucinations: Denies Delusions: None elicited Impulse Control: Limited Insight and Judgment: Limited insight and fair judgment Memory: Limited Attention: attentive Orientation: confused Assessment (1)Major depressive disorder Current Visit: Yes Status: Acute Treatment Plan Patient admitted for inpatient psychiatric evaluation, medication adjustment and close monitoring The patient's behavior, mood, sleep and appetite will be closely monitored. Patient enrolled in individual and group therapeutic sessions and encouraged to attend. Patient provided with a safe and structured environment. Patient's physical health needs will be addressed by the Hospitalist. Hospitalist Consulted Labs including CBC, CMP, Lipid profile and Hemoglobin A1C levels ordered for baseline reference Social Assessment will be completed and the Rib Sawyer will work with patient and family to ensure a suitable and safe disposition Medication adjustment will be made as clinically indicated Increase Trazodone 75mg po qhs Usual Wellness Congregational/Preservation: - Start Trazodone 50 mg po QHS & 50 mg po QHS PRN between 10 PM & 2 AM for insomnia - Start Melatonin 5 mg po QHS to promote circadian rhythm The patient agreed on the treatment plan, understood the risk, benefit, alternative treatment, potential consequence of no treatment, and gave informed consent. Estimated days:5 Post hospital care: primary care provider, psychiatric provider Case staffed with Dr. Diggs Medications and Allergies Allergies Allergy/AdvReac Type Severity Reaction Status Date / Time No Known Drug Allergies Allergy Unknown Verified 07/29/21 01:30 Home Medications Medication Instructions Recorded Confirmed Last Taken Type Aspirin [[place] Aspirin EC] 81 mg PO DAILY 07/29/21 07/29/21 Unknown History Calcium Carbonate/Mag Carb 400 mg PO BID 07/29/21 07/29/21 Unknown History [Magnebind 400 Tablet] Calcium Carbonate/Vitamin D3 1 each PO DAILY 07/29/21 07/29/21 Unknown History [Calcium 600-Vit D3 400 Tablet] Ferrous Sulfate [Iron 325 MG] 325 mg PO DAILY 07/29/21 07/29/21 Unknown History Lisinopril [Zestril] 5 mg PO DAILY 07/29/21 07/29/21 Unknown History Pantoprazole [Protonix] 40 mg PO QDAY 07/29/21 07/29/21 Unknown History Simvastatin 40 mg PO HS 07/29/21 07/29/21 Unknown History clonazePAM [Klonopin] 1 mg PO BID 07/29/21 07/29/21 Unknown History Active Meds: Active Medications Acetaminophen (Acetaminophen 325 Mg Tab) 650 mg PO Q6H PRN PRN Reason: Pain, Mild (1-3) Aspirin (Aspirin Ec 81 Mg Tab) 81 mg PO DAILY [facility] Last Admin: 07/31/21 09:20 Dose: 81 mg Calcium/Vitamin D (Calcium Carbonate/Vitamin D3 500 Mg-200 Unit Tab) 1 each PO DAILY [facility] Last Admin: 07/31/21 09:20 Dose: 1 each Clonazepam (Clonazepam 0.5 Mg Tab) 1 mg PO BID [facility] Last Admin: 07/31/21 21:23 Dose: 1 mg Docusate Sodium (Docusate Sodium 100 Mg Cap) 100 mg PO QDAY [facility] Last Admin: 07/31/21 09:24 Dose: Not Given Ferrous Sulfate (Ferrous Sulfate 325 Mg Tab) 325 mg PO DAILY [facility] Last Admin: 07/31/21 09:20 Dose: 325 mg Hydroxyzine Pamoate (Hydroxyzine Pamoate 25 Mg Cap) 25 mg PO Q6H PRN PRN Reason: Anxiety Lisinopril (Lisinopril 5 Mg Tab) 5 mg PO DAILY [facility] Last Admin: 07/31/21 09:20 Dose: 5 mg Magnesium Hydroxide (Magnesium Hydroxide (Mom) Oral Liqd Udc) 30 ml PO QDAY PRN PRN Reason: Constipation Melatonin (Melatonin 5 Mg Tab) 5 mg PO QHS PRN PRN Reason: Sleep Pantoprazole Sodium (Pantoprazole 40 Mg Tab) 40 mg PO QDAY [facility] Last Admin: 07/31/21 09:20 Dose: 40 mg Pravastatin Sodium (Pravastatin 80 Mg Tab) 80 mg PO QHS [facility] Last Admin: 07/31/21 21:24 Dose: 80 mg Trazodone HCl (Trazodone 50 Mg Tab) 50 mg PO QHS [facility] Last Admin: 07/31/21 21:24 Dose: 50 mg Venlafaxine HCl (Venlafaxine 37.5 Mg Tab) 37.5 mg PO DAILY [facility] Last Admin: 07/31/21 09:20 Dose: 37.5 mg Results - Results Labs/Vitals: Laboratory Last Values WBC 8.1 K/mm3 (4.5-11.0) 07/30/21 19:18 RBC 5.11 M/mm3 (3.65-5.03) H 07/30/21 19:18 Hgb 10.3 gm/dl (10.1-14.3) 07/30/21 19:18 Hct 34.7 % (30.3-42.9) 07/30/21 19:18 MCV 68 fl (79-97) L 07/30/21 19:18 MCH 20 pg (28-32) L 07/30/21 19:18 MCHC 30 % (30-34) 07/30/21 19:18 RDW 19.6 % (13.2-15.2) H 07/30/21 19:18 Plt Count 712 K/mm3 (140-440) H 07/30/21 19:18 Lymph % (Auto) 17.0 % (13.4-35.0) 07/30/21 19:18 [place] % (Auto) 8.8 % (0.0-7.3) H 07/30/21 19:18 Eos % (Auto) 3.9 % (0.0-4.3) 07/30/21 19:18 Baso % (Auto) 1.1 % (0.0-1.8) 07/30/21 19:18 Lymph # (Auto) 1.4 K/mm3 (1.2-5.4) 07/30/21 19:18 [place] # (Auto) 0.7 K/mm3 (0.0-0.8) 07/30/21 19:18 Eos # (Auto) 0.3 K/mm3 (0.0-0.4) 07/30/21 19:18 Baso # (Auto) 0.1 K/mm3 (0.0-0.1) 07/30/21 19:18 Seg Neutrophils % 69.2 % (40.0-70.0) 07/30/21 19:18 Seg Neutrophils # 5.6 K/mm3 (1.8-7.7) 07/30/21 19:18 Sodium 142 mmol/L (137-145) 07/30/21 19:18 Potassium 4.2 mmol/L (3.6-5.0) 07/30/21 19:18 Chloride 102.7 mmol/L (98-107) 07/30/21 19:18 Carbon Dioxide 25 mmol/L (22-30) 07/30/21 19:18 Anion Gap 19 mmol/L 07/30/21 19:18 BUN 44 mg/dL (7-17) H 07/30/21 19:18 Creatinine 1.2 mg/dL (0.6-1.2) 07/30/21 19:18 Estimated GFR 43 ml/min 07/30/21 19:18 BUN/Creatinine Ratio 37 % 07/30/21 19:18 Glucose 105 mg/dL (65-100) H 07/30/21 19:18 Hemoglobin A1c 5.6 % (4-6) 07/30/21 19:18 Calcium 10.2 mg/dL (8.4-10.2) 07/30/21 19:18 Total Bilirubin 0.40 mg/dL (0.1-1.2) 07/30/21 19:18 AST 25 units/L (5-40) 07/30/21 19:18 ALT 19 units/L (7-56) 07/30/21 19:18 Alkaline Phosphatase 69 units/L (35-129) 07/30/21 19:18 Total Protein 6.4 g/dL (6.3-8.2) 07/30/21 19:18 Albumin 3.9 g/dL (3.9-5) 07/30/21 19:18 Albumin/Globulin Ratio 1.6 % 07/30/21 19:18 TSH 1.330 mlU/mL (0.270-4.200) 07/30/21 19:18 Urine Color Yellow (Yellow) 07/30/21 17: Urine Turbidity Clear (Clear) 07/30/21 17: Urine pH 5.0 (5.0-7.0) 07/30/21 17: Ur Specific [place] 1.017 (1.003-1.030) 07/30/21: Urine Protein <15 mg/dl mg/dL (Negative) 07/30/21: Urine Glucose (UA) Neg mg/dL (Negative) 07/30/21 17: Urine Ketones Neg mg/dL (Negative) 07/30/21: Urine Blood Neg (Negative) 07/30/21: Urine Nitrite Neg (Negative) 07/30/21: Ur Reducing Substances Not Reportable 07/30/21: Urine Bilirubin Neg (Negative) 07/30/21: Urine Ictotest Not Reportable 07/30/21: Urine Urobilinogen < 2.0 mg/dL (<2.0) 07/30/21 17:23 Ur Leukocyte Esterase Tr (Negative) 07/30/21 17: Urine WBC (Auto) 7.0 /HPF (0.0-6.0) H 07/30/21 17: Urine RBC (Auto) 2.0 /HPF (0.0-6.0) 07/30/21: U Epithel Cells (Auto) < 1.0 /HPF (0-13.0) 07/30/21: Urine Mucus Few /HPF 07/30/21 17:23 Last Vital Signs Temp 98.4 F 07/31/21 19:31 Pulse 87 07/31/21 19:31 Resp 17 07/31/21 19:31 BP 143/80 07/31/21 19:31 Pulse Ox 92 07/31/21 19:31
[2021-08-01] MEDS: VENLAFAXINE 37.5 MG TAB PO SCH (09:24)
[2021-08-01] MEDS: FERROUS SULFATE 325 MG TAB PO SCH (09:24)
[2021-08-01] MEDS: CALCIUM CARBONATE/VITAMIN D3 500 MG-200 UNIT TAB PO SCH (09:25)
[2021-08-01] MEDS: PANTOPRAZOLE 40 MG TAB PO SCH (09:25)
[2021-08-01] MEDS: DOCUSATE SODIUM 100 MG CAP PO SCH (09:25)
[2021-08-01] MEDS: LISINOPRIL 5 MG TAB PO SCH (09:25)
[2021-08-01] MEDS: clonazePAM 0.5 MG TAB PO SCH ×2 (09:25→21:06)
[2021-08-01] MEDS: ASPIRIN EC 81 MG TAB PO SCH (09:25)
--- NOTE | 2021-08-01 12:01 | Event Note ---
Date: 08/01/21 Spoke with the patient's son about the patient's progress, treatment plan and discharge plan. He agreed with the treatment plan, and was happy to hear that his mother was doing better. He says he's ready to get her home. I informed him that she would be discharged on Wednesday, and we were monitoring her to ensure her safety since she had a recent suicidal attempt. He was in full agreement of this. He say he can pick his mother up Wednesday around 2 pm.
--- NOTE | 2021-08-01 12:12 | Progress Note ---
Assessment and Plan - Patient Problems (1) Vascular dementia with behavioral disturbance Current Visit: Yes Status: Acute Plan to address problem: Verbal prompting, verbal redirection, benzodiazepine therapy as clinically indicated. (2) Cerebral atherosclerosis Current Visit: Yes Status: Acute Plan to address problem: Risk factor reduction, antiplatelet therapy is clinically indicated. (3) Depression Current Visit: Yes Status: Acute Plan to address problem: Continue medical management, supportive care. (4) Anxiety Current Visit: Yes Status: Acute Plan to address problem: Benzodiazepine therapy as clinically indicated, supportive care. (5) Advance care planning Current Visit: Yes Status: Acute Plan to address problem: Disease restaging data, care plan discussed, diagnosis discussed, prognosis discussed, +30 minutes. History Interval history: 85 YO Female with Vascular Dementia with Behavioral disturbance, Cerebral Atheroaclerosis, MDD, JOHNATHAN admitted to [facility] for Psychiatric stabilization. Consult placed by Dr. Santos for medical management. Pt seen and evaluated in the recreation room. No reported nursing events. Patient denies pain. Hospitalist Physical - Constitutional Vitals: Temp Pulse Resp BP Pulse Ox 98.4 F 87 17 143/80 92 07/31/21 19:31 07/31/21 19:31 07/31/21 19:31 07/31/21 19:31 07/31/21 19:31 General appearance: Present: no acute distress - EENT Eyes: Present: PERRL ENT: hearing intact - Neck Neck: Present: supple - Respiratory Respiratory effort: normal Respiratory: bilateral: CTA - Cardiovascular Rhythm: regular Heart Sounds: Present: S1 & S2 - Extremities Extremities: no ischemia Peripheral Pulses: within normal limits - Abdominal General gastrointestinal: soft, non-tender, non-distended - Integumentary Integumentary: Present: clear, dry - Psychiatric Psychiatric: cooperative - Neurologic Neurologic: CNII-XII intact Results - Labs CBC & Chem 7: 07/30/21 19:18 07/30/21 19:18 Labs: Laboratory Last Values WBC 8.1 K/mm3 (4.5-11.0) 07/30/21 19:18 RBC 5.11 M/mm3 (3.65-5.03) H 07/30/21 19:18 Hgb 10.3 gm/dl (10.1-14.3) 07/30/21 19:18 Hct 34.7 % (30.3-42.9) 07/30/21 19:18 MCV 68 fl (79-97) L 07/30/21 19:18 MCH 20 pg (28-32) L 07/30/21 19:18 MCHC 30 % (30-34) 07/30/21 19:18 RDW 19.6 % (13.2-15.2) H 07/30/21 19:18 Plt Count 712 K/mm3 (140-440) H 07/30/21 19:18 Lymph % (Auto) 17.0 % (13.4-35.0) 07/30/21 19:18 [place] % (Auto) 8.8 % (0.0-7.3) H 07/30/21 19:18 Eos % (Auto) 3.9 % (0.0-4.3) 07/30/21 19:18 Baso % (Auto) 1.1 % (0.0-1.8) 07/30/21 19:18 Lymph # (Auto) 1.4 K/mm3 (1.2-5.4) 07/30/21 19:18 [place] # (Auto) 0.7 K/mm3 (0.0-0.8) 07/30/21 19:18 Eos # (Auto) 0.3 K/mm3 (0.0-0.4) 07/30/21 19:18 Baso # (Auto) 0.1 K/mm3 (0.0-0.1) 07/30/21 19:18 Seg Neutrophils % 69.2 % (40.0-70.0) 07/30/21 19:18 Seg Neutrophils # 5.6 K/mm3 (1.8-7.7) 07/30/21 19:18 Sodium 142 mmol/L (137-145) 07/30/21 19:18 Potassium 4.2 mmol/L (3.6-5.0) 07/30/21 19:18 Chloride 102.7 mmol/L (98-107) 07/30/21 19:18 Carbon Dioxide 25 mmol/L (22-30) 07/30/21 19:18 Anion Gap 19 mmol/L 07/30/21 19:18 BUN 44 mg/dL (7-17) H 07/30/21 19:18 Creatinine 1.2 mg/dL (0.6-1.2) 07/30/21 19:18 Estimated GFR 43 ml/min 07/30/21 19:18 BUN/Creatinine Ratio 37 % 07/30/21 19:18 Glucose 105 mg/dL (65-100) H 07/30/21 19:18 Hemoglobin A1c 5.6 % (4-6) 07/30/21 19:18 Calcium 10.2 mg/dL (8.4-10.2) 07/30/21 19:18 Total Bilirubin 0.40 mg/dL (0.1-1.2) 07/30/21 19:18 AST 25 units/L (5-40) 07/30/21 19:18 ALT 19 units/L (7-56) 07/30/21 19:18 Alkaline Phosphatase 69 units/L (35-129) 07/30/21 19:18 Total Protein 6.4 g/dL (6.3-8.2) 07/30/21 19:18 Albumin 3.9 g/dL (3.9-5) 07/30/21 19:18 Albumin/Globulin Ratio 1.6 % 07/30/21 19:18 TSH 1.330 mlU/mL (0.270-4.200) 07/30/21 19:18 Urine Color Yellow (Yellow) 07/30/21 17:23 Urine Turbidity Clear (Clear) 07/30/21 17: Urine pH 5.0 (5.0-7.0) 07/30/21 17:23 Ur Specific [place] 1.017 (1.003-1.030) 07/30/21 17: Urine Protein <15 mg/dl mg/dL (Negative) 07/30/21 17:23 Urine Glucose (UA) Neg mg/dL (Negative) 07/30/21 17:23 Urine Ketones Neg mg/dL (Negative) 07/30/21 17: Urine Blood Neg (Negative) 07/30/21 17: Urine Nitrite Neg (Negative) 07/30/21 17:23 Ur Reducing Substances Not Reportable 07/30/21 17: Urine Bilirubin Neg (Negative) 07/30/21 17: Urine Ictotest Not Reportable 07/30/21: Urine Urobilinogen < 2.0 mg/dL (<2.0) 07/30/21 17:23 Ur Leukocyte Esterase Tr (Negative) 07/30/21 17:23 Urine WBC (Auto) 7.0 /HPF (0.0-6.0) H 07/30/21 17:23 Urine RBC (Auto) 2.0 /HPF (0.0-6.0) 07/30/21 17:23 U Epithel Cells (Auto) < 1.0 /HPF (0-13.0) 07/30/21 17:23 Urine Mucus Few /HPF 07/30/21 17:23 Rushing/IV: Voiding Method Toilet Active Medications - Current Medications Current Medications: Generic Name Dose Route Start Last Admin Trade Name Freq PRN Reason Stop Dose Admin Acetaminophen 650 mg 07/29/21 01:47 Acetaminophen 325 Mg Tab PO Q6H PRN Pain, Mild (1-3) Aspirin 81 mg 07/29/21 10:00 08/01/21 09:25 Aspirin Ec 81 Mg Tab PO 81 mg DAILY [facility] Administration Calcium/Vitamin D 1 each 07/29/21 10:00 08/01/21 09:25 Calcium Carbonate/Vitamin D3 500 Mg-200 Unit Tab PO 1 each DAILY [facility] Administration Clonazepam 1 mg 07/31/21 22:00 08/01/21 09:25 Clonazepam 0.5 Mg Tab PO Not Given BID [facility] Docusate Sodium 100 mg 07/30/21 10:00 08/01/21 09:25 Docusate Sodium 100 Mg Cap PO 100 mg QDAY [facility] Administration Ferrous Sulfate 325 mg 07/29/21 10:00 08/01/21 09:24 Ferrous Sulfate 325 Mg Tab PO 325 mg DAILY [facility] Administration Hydroxyzine Pamoate 25 mg 07/30/21 10:00 Hydroxyzine Pamoate 25 Mg Cap PO Q6H PRN Anxiety Lisinopril 5 mg 07/29/21 10:00 08/01/21 09:25 Lisinopril 5 Mg Tab PO 5 mg DAILY [facility] Administration Magnesium Hydroxide 30 ml 07/29/21 17:30 Magnesium Hydroxide (Mom) Oral Liqd Udc PO QDAY PRN Constipation Melatonin 5 mg 07/29/21 01:49 Melatonin 5 Mg Tab PO QHS PRN Sleep Pantoprazole Sodium 40 mg 07/29/21 10:00 08/01/21 09:25 Pantoprazole 40 Mg Tab PO 40 mg QDAY [facility] Administration Pravastatin Sodium 80 mg 07/29/21 22:00 07/31/21 21:24 Pravastatin 80 Mg Tab PO 80 mg QHS [facility] Administration Trazodone HCl 75 mg 08/01/21 22:00 Trazodone 50 Mg Tab PO QHS [facility] Venlafaxine HCl 37.5 mg 07/30/21 11:00 08/01/21 09:24 Venlafaxine 37.5 Mg Tab PO 37.5 mg DAILY [facility] Administration
[2021-08-01] MEDS: traZODone 50 MG TAB PO SCH (21:06)
[2021-08-01] MEDS: PRAVASTATIN 80 MG TAB PO SCH (21:06)
--- NOTE | 2021-08-02 07:33 | Progress Note ---
Hospitalist Physical - Constitutional Vitals: Temp Pulse Resp BP Pulse Ox 99.7 F H 80 16 135/77 95 08/01/21 22:00 08/01/21 22:00 08/01/21 22:00 08/01/21 22:00 08/01/21 22:00 General appearance: Present: no acute distress Results - Labs CBC & Chem 7: 07/30/21 19:18 07/30/21 19:18 Labs: Laboratory Last Values WBC 8.1 K/mm3 (4.5-11.0) 07/30/21 19:18 RBC 5.11 M/mm3 (3.65-5.03) H 07/30/21 19:18 Hgb 10.3 gm/dl (10.1-14.3) 07/30/21 19:18 Hct 34.7 % (30.3-42.9) 07/30/21 19:18 MCV 68 fl (79-97) L 07/30/21 19:18 MCH 20 pg (28-32) L 07/30/21 19:18 MCHC 30 % (30-34) 07/30/21 19:18 RDW 19.6 % (13.2-15.2) H 07/30/21 19:18 Plt Count 712 K/mm3 (140-440) H 07/30/21 19:18 Lymph % (Auto) 17.0 % (13.4-35.0) 07/30/21 19:18 [place] % (Auto) 8.8 % (0.0-7.3) H 07/30/21 19:18 Eos % (Auto) 3.9 % (0.0-4.3) 07/30/21 19:18 Baso % (Auto) 1.1 % (0.0-1.8) 07/30/21 19:18 Lymph # (Auto) 1.4 K/mm3 (1.2-5.4) 07/30/21 19:18 [place] # (Auto) 0.7 K/mm3 (0.0-0.8) 07/30/21 19:18 Eos # (Auto) 0.3 K/mm3 (0.0-0.4) 07/30/21 19:18 Baso # (Auto) 0.1 K/mm3 (0.0-0.1) 07/30/21 19:18 Seg Neutrophils % 69.2 % (40.0-70.0) 07/30/21 19:18 Seg Neutrophils # 5.6 K/mm3 (1.8-7.7) 07/30/21 19:18 Sodium 142 mmol/L (137-145) 07/30/21 19:18 Potassium 4.2 mmol/L (3.6-5.0) 07/30/21 19:18 Chloride 102.7 mmol/L (98-107) 07/30/21 19:18 Carbon Dioxide 25 mmol/L (22-30) 07/30/21 19:18 Anion Gap 19 mmol/L 07/30/21 19:18 BUN 44 mg/dL (7-17) H 07/30/21 19:18 Creatinine 1.2 mg/dL (0.6-1.2) 07/30/21 19:18 Estimated GFR 43 ml/min 07/30/21 19:18 BUN/Creatinine Ratio 37 % 07/30/21 19:18 Glucose 105 mg/dL (65-100) H 07/30/21 19:18 Hemoglobin A1c 5.6 % (4-6) 07/30/21 19:18 Calcium 10.2 mg/dL (8.4-10.2) 07/30/21 19:18 Total Bilirubin 0.40 mg/dL (0.1-1.2) 07/30/21 19:18 AST 25 units/L (5-40) 07/30/21 19:18 ALT 19 units/L (7-56) 07/30/21 19:18 Alkaline Phosphatase 69 units/L (35-129) 07/30/21 19:18 Total Protein 6.4 g/dL (6.3-8.2) 07/30/21 19:18 Albumin 3.9 g/dL (3.9-5) 07/30/21 19:18 Albumin/Globulin Ratio 1.6 % 07/30/21 19:18 TSH 1.330 mlU/mL (0.270-4.200) 07/30/21 19:18 Urine Color Yellow (Yellow) 07/30/21 17:23 Urine Turbidity Clear (Clear) 07/30/21 17:23 Urine pH 5.0 (5.0-7.0) 07/30/21 17:23 Ur Specific [place] 1.017 (1.003-1.030) 07/30/21 17: Urine Protein <15 mg/dl mg/dL (Negative) 07/30/21 17: Urine Glucose (UA) Neg mg/dL (Negative) 07/30/21 17: Urine Ketones Neg mg/dL (Negative) 07/30/21 17: Urine Blood Neg (Negative) 07/30/21 17: Urine Nitrite Neg (Negative) 07/30/21 17: Ur Reducing Substances Not Reportable 07/30/21 17: Urine Bilirubin Neg (Negative) 07/30/21 17: Urine Ictotest Not Reportable 07/30/21: Urine Urobilinogen < 2.0 mg/dL (<2.0) 07/30/21 17: Ur Leukocyte Esterase Tr (Negative) 07/30/21 17: Urine WBC (Auto) 7.0 /HPF (0.0-6.0) H 07/30/21 17: Urine RBC (Auto) 2.0 /HPF (0.0-6.0) 07/30/21: U Epithel Cells (Auto) < 1.0 /HPF (0-13.0) 07/30/21 17: Urine Mucus Few /HPF 07/30/21 17: Rushing/IV: Voiding Method Toilet Active Medications - Current Medications Current Medications: Generic Name Dose Route Start Last Admin Trade Name Freq PRN Reason Stop Dose Admin Acetaminophen 650 mg 07/29/21 01:47 Acetaminophen 325 Mg Tab PO Q6H PRN Pain, Mild (1-3) Aspirin 81 mg 07/29/21 10:00 08/01/21 09:25 Aspirin Ec 81 Mg Tab PO 81 mg DAILY [facility] Administration Calcium/Vitamin D 1 each 07/29/21 10:00 08/01/21 09:25 Calcium Carbonate/Vitamin D3 500 Mg-200 Unit Tab PO 1 each DAILY [facility] Administration Clonazepam 1 mg 07/31/21 22:00 08/01/21 21:06 Clonazepam 0.5 Mg Tab PO 1 mg BID [facility] Administration Docusate Sodium 100 mg 07/30/21 10:00 08/01/21 09:25 Docusate Sodium 100 Mg Cap PO 100 mg QDAY [facility] Administration Ferrous Sulfate 325 mg 07/29/21 10:00 08/01/21 09:24 Ferrous Sulfate 325 Mg Tab PO 325 mg DAILY [facility] Administration Hydroxyzine Pamoate 25 mg 07/30/21 10:00 Hydroxyzine Pamoate 25 Mg Cap PO Q6H PRN Anxiety Lisinopril 5 mg 07/29/21 10:00 08/01/21 09:25 Lisinopril 5 Mg Tab PO 5 mg DAILY [facility] Administration Magnesium Hydroxide 30 ml 07/29/21 17:30 Magnesium Hydroxide (Mom) Oral Liqd Udc PO QDAY PRN Constipation Melatonin 5 mg 07/29/21 01:49 08/01/21 21:06 Melatonin 5 Mg Tab PO 5 mg QHS PRN Administration Sleep Pantoprazole Sodium 40 mg 07/29/21 10:00 08/01/21 09:25 Pantoprazole 40 Mg Tab PO 40 mg QDAY [facility] Administration Pravastatin Sodium 80 mg 07/29/21 22:00 08/01/21 21:06 Pravastatin 80 Mg Tab PO 80 mg QHS [facility] Administration Trazodone HCl 75 mg 08/01/21 22:00 08/01/21 21:06 Trazodone 50 Mg Tab PO 75 mg QHS [facility] Administration Venlafaxine HCl 37.5 mg 07/30/21 11:00 08/01/21 09:24 Venlafaxine 37.5 Mg Tab PO 37.5 mg DAILY [facility] Administration
--- NOTE | 2021-08-02 07:33 | Progress Note ---
Assessment and Plan Assessment and plan: --s/p fall ; Fall precautions, supportive care Ambulate as tolerated --right supraorbital contusion; Wound care as needed Pain medications Contusion significantly improved --Hypertension; well controlled Continue current antihypertensives As needed medications --Dyslipidemia-; Lipid-lowering medications Low-cholesterol diet -- Depression Current Visit: Yes Status: Acute Management per psych -- Anxiety Current Visit: Yes Status: Acute Management per psych -- Vascular dementia with behavioral disturbance Current Visit: Yes Status: Acute Continue supportive care --Cerebral atherosclerosis Current Visit: Yes Status: Acute Risk factor reduction, antiplatelet therapy is clinically indicated. --DVT prophylaxis ; SCDs while resting Ambulate as tolerated Patient symptoms significantly improved We will monitor the patient closely And adjust the management as needed Continue current treatment as planned Plan of care reviewed with the patient and her nurse Call us with questions History Interval history: I have seen and examined the patient in psych unit Patient is sleeping in her room Easily awakens, States that she feels tired, no new complaints Hospitalist Physical - Constitutional Vitals: Temp Pulse Resp BP Pulse Ox 99.7 F H 80 16 135/77 95 08/01/21 22:00 08/01/21 22:00 08/01/21 22:00 08/01/21 22:00 08/01/21 22:00 General appearance: Present: no acute distress, well-nourished - EENT Eyes: Present: PERRL, EOM intact - Neck Neck: Present: supple, normal ROM - Respiratory Respiratory effort: normal Respiratory: bilateral: diminished, negative: rales, rhonchi, wheezing - Cardiovascular Rhythm: regular Heart Sounds: Present: S1 & S2 - Extremities Extremities: no ischemia, No edema - Abdominal General gastrointestinal: soft, non-tender, non-distended, normal bowel sounds - Integumentary Integumentary: Present: clear, warm - Psychiatric Psychiatric: appropriate mood/affect, other (Sometimes confused) - Neurologic Neurologic: moves all extremities Results - Labs CBC & Chem 7: 07/30/21 19:18 07/30/21 19:18 Labs: Laboratory Last Values WBC 8.1 K/mm3 (4.5-11.0) 07/30/21 19:18 RBC 5.11 M/mm3 (3.65-5.03) H 07/30/21 19:18 Hgb 10.3 gm/dl (10.1-14.3) 07/30/21 19:18 Hct 34.7 % (30.3-42.9) 07/30/21 19:18 MCV 68 fl (79-97) L 07/30/21 19:18 MCH 20 pg (28-32) L 07/30/21 19:18 MCHC 30 % (30-34) 07/30/21 19:18 RDW 19.6 % (13.2-15.2) H 07/30/21 19:18 Plt Count 712 K/mm3 (140-440) H 07/30/21 19:18 Lymph % (Auto) 17.0 % (13.4-35.0) 07/30/21 19:18 [place] % (Auto) 8.8 % (0.0-7.3) H 07/30/21 19:18 Eos % (Auto) 3.9 % (0.0-4.3) 07/30/21 19:18 Baso % (Auto) 1.1 % (0.0-1.8) 07/30/21 19:18 Lymph # (Auto) 1.4 K/mm3 (1.2-5.4) 07/30/21 19:18 [place] # (Auto) 0.7 K/mm3 (0.0-0.8) 07/30/21 19:18 Eos # (Auto) 0.3 K/mm3 (0.0-0.4) 07/30/21 19:18 Baso # (Auto) 0.1 K/mm3 (0.0-0.1) 07/30/21 19:18 Seg Neutrophils % 69.2 % (40.0-70.0) 07/30/21 19:18 Seg Neutrophils # 5.6 K/mm3 (1.8-7.7) 07/30/21 19:18 Sodium 142 mmol/L (137-145) 07/30/21 19:18 Potassium 4.2 mmol/L (3.6-5.0) 07/30/21 19:18 Chloride 102.7 mmol/L (98-107) 07/30/21 19:18 Carbon Dioxide 25 mmol/L (22-30) 07/30/21 19:18 Anion Gap 19 mmol/L 07/30/21 19:18 BUN 44 mg/dL (7-17) H 07/30/21 19:18 Creatinine 1.2 mg/dL (0.6-1.2) 07/30/21 19:18 Estimated GFR 43 ml/min 07/30/21 19:18 BUN/Creatinine Ratio 37 % 07/30/21 19:18 Glucose 105 mg/dL (65-100) H 07/30/21 19:18 Hemoglobin A1c 5.6 % (4-6) 07/30/21 19:18 Calcium 10.2 mg/dL (8.4-10.2) 07/30/21 19:18 Total Bilirubin 0.40 mg/dL (0.1-1.2) 07/30/21 19:18 AST 25 units/L (5-40) 07/30/21 19:18 ALT 19 units/L (7-56) 07/30/21 19:18 Alkaline Phosphatase 69 units/L (35-129) 07/30/21 19:18 Total Protein 6.4 g/dL (6.3-8.2) 07/30/21 19:18 Albumin 3.9 g/dL (3.9-5) 07/30/21 19:18 Albumin/Globulin Ratio 1.6 % 07/30/21 19:18 TSH 1.330 mlU/mL (0.270-4.200) 07/30/21 19:18 Urine Color Yellow (Yellow) 07/30/21 17:23 Urine Turbidity Clear (Clear) 07/30/21 17:23 Urine pH 5.0 (5.0-7.0) 07/30/21 17:23 Ur Specific [place] 1.017 (1.003-1.030) 07/30/21 17:23 Urine Protein <15 mg/dl mg/dL (Negative) 07/30/21 17:23 Urine Glucose (UA) Neg mg/dL (Negative) 07/30/21 17: Urine Ketones Neg mg/dL (Negative) 07/30/21 17: Urine Blood Neg (Negative) 07/30/21 17: Urine Nitrite Neg (Negative) 07/30/21 17:23 Ur Reducing Substances Not Reportable 07/30/21 17: Urine Bilirubin Neg (Negative) 07/30/21 17: Urine Ictotest Not Reportable 07/30/21 17:23 Urine Urobilinogen < 2.0 mg/dL (<2.0) 07/30/21 17:23 Ur Leukocyte Esterase Tr (Negative) 07/30/21 17:23 Urine WBC (Auto) 7.0 /HPF (0.0-6.0) H 07/30/21 17:23 Urine RBC (Auto) 2.0 /HPF (0.0-6.0) 07/30/21 17:23 U Epithel Cells (Auto) < 1.0 /HPF (0-13.0) 07/30/21 17:23 Urine Mucus Few /HPF 07/30/21 17:23 Rushing/IV: Voiding Method Toilet Active Medications - Current Medications Current Medications: Generic Name Dose Route Start Last Admin Trade Name Freq PRN Reason Stop Dose Admin Acetaminophen 650 mg 07/29/21 01:47 Acetaminophen 325 Mg Tab PO Q6H PRN Pain, Mild (1-3) Aspirin 81 mg 07/29/21 10:00 08/01/21 09:25 Aspirin Ec 81 Mg Tab PO 81 mg DAILY ANGEL Administration Calcium/Vitamin D 1 each 07/29/21 10:00 08/01/21 09:25 Calcium Carbonate/Vitamin D3 500 Mg-200 Unit Tab PO 1 each DAILY ANGEL Administration Clonazepam 1 mg 07/31/21 22:00 08/01/21 21:06 Clonazepam 0.5 Mg Tab PO 1 mg BID ANGEL Administration Docusate Sodium 100 mg 07/30/21 10:00 08/01/21 09:25 Docusate Sodium 100 Mg Cap PO 100 mg QDAY ANGEL Administration Ferrous Sulfate 325 mg 07/29/21 10:00 08/01/21 09:24 Ferrous Sulfate 325 Mg Tab PO 325 mg DAILY NAGEL Administration Hydroxyzine Pamoate 25 mg 07/30/21 10:00 Hydroxyzine Pamoate 25 Mg Cap PO Q6H PRN Anxiety Lisinopril 5 mg 07/29/21 10:00 08/01/21 09:25 Lisinopril 5 Mg Tab PO 5 mg DAILY ANGEL Administration Magnesium Hydroxide 30 ml 07/29/21 17:30 Magnesium Hydroxide (Mom) Oral Liqd Udc PO QDAY PRN Constipation Melatonin 5 mg 07/29/21 01:49 08/01/21 21:06 Melatonin 5 Mg Tab PO 5 mg QHS PRN Administration Sleep Pantoprazole Sodium 40 mg 07/29/21 10:00 08/01/21 09:25 Pantoprazole 40 Mg Tab PO 40 mg QDAY ANGEL Administration Pravastatin Sodium 80 mg 07/29/21 22:00 08/01/21 21:06 Pravastatin 80 Mg Tab PO 80 mg QHS ANGEL Administration Trazodone HCl 75 mg 08/01/21 22:00 08/01/21 21:06 Trazodone 50 Mg Tab PO 75 mg QHS ANGEL Administration Venlafaxine HCl 37.5 mg 07/30/21 11:00 08/01/21 09:24 Venlafaxine 37.5 Mg Tab PO 37.5 mg DAILY ANGEL Administration
--- NOTE | 2021-08-02 09:06 | Progress Note ---
Subjective Date of service: 08/02/21 Principal diagnosis: MDD Subjective Comment: The patient was seen today. She is sitting quietly in the dayroom. She is calm, and cooperative. She is a/o x 3. She denies SI/HI and hallucinations of any kind. The patient says she slept "straight through the night." REVIEW OF SYSTEMS Constitutional: Negative for weight loss ENT: Negative for stridor Respiratory: Negative for cough or hemoptysis All other systems reviewed and are negative MENTAL STATUS EXAMINATION General Appearance and Behavior: Age appropriate, good hygiene, wearing appropriate clothes. calm, cooperative, pleasant Cooperation: Cooperative Psychomotor Behavior: Psychomotor normal Mood: fine Affect and affective range: Congruent with stated mood Thought Process: impaired Thought Content: Reality oriented Speech: Normal tone and pace Suicidal Ideation: Denies Homicidal Ideation: Denies Hallucinations: Denies Delusions: None elicited Impulse Control: Limited Insight and Judgment: Limited insight and fair judgment Memory: Limited Attention: attentive Orientation: confused Assessment (1)Major depressive disorder Current Visit: Yes Status: Acute Treatment Plan Patient admitted for inpatient psychiatric evaluation, medication adjustment and close monitoring The patient's behavior, mood, sleep and appetite will be closely monitored. Patient enrolled in individual and group therapeutic sessions and encouraged to attend. Patient provided with a safe and structured environment. Patient's physical health needs will be addressed by the Hospitalist. Hospitalist Consulted Labs including CBC, CMP, Lipid profile and Hemoglobin A1C levels ordered for baseline reference Social Assessment will be completed and the Cloth Measurer Machine will work with patient and family to ensure a suitable and safe disposition Medication adjustment will be made as clinically indicated Increase Trazodone 75mg po qhs yesterday No changes made today Usual Wellness Hinduism/Preservation: - Start Trazodone 50 mg po QHS & 50 mg po QHS PRN between 10 PM & 2 AM for insomnia - Start Melatonin 5 mg po QHS to promote circadian rhythm The patient agreed on the treatment plan, understood the risk, benefit, alternative treatment, potential consequence of no treatment, and gave informed consent. Estimated days:5 Post hospital care: primary care provider, psychiatric provider Case staffed with Dr. Diggs Medications and Allergies Allergies Allergy/AdvReac Type Severity Reaction Status Date / Time No Known Drug Allergies Allergy Unknown Verified 07/29/21 01:30 Home Medications Medication Instructions Recorded Confirmed Last Taken Type Aspirin [[place] Aspirin EC] 81 mg PO DAILY 07/29/21 07/29/21 Unknown History Calcium Carbonate/Mag Carb 400 mg PO BID 07/29/21 07/29/21 Unknown History [Magnebind 400 Tablet] Calcium Carbonate/Vitamin D3 1 each PO DAILY 07/29/21 07/29/21 Unknown History [Calcium 600-Vit D3 400 Tablet] Ferrous Sulfate [Iron 325 MG] 325 mg PO DAILY 07/29/21 07/29/21 Unknown History Lisinopril [Zestril] 5 mg PO DAILY 07/29/21 07/29/21 Unknown History Pantoprazole [Protonix] 40 mg PO QDAY 07/29/21 07/29/21 Unknown History Simvastatin 40 mg PO HS 07/29/21 07/29/21 Unknown History clonazePAM [Klonopin] 1 mg PO BID 07/29/21 07/29/21 Unknown History Active Meds: Active Medications Acetaminophen (Acetaminophen 325 Mg Tab) 650 mg PO Q6H PRN PRN Reason: Pain, Mild (1-3) Aspirin (Aspirin Ec 81 Mg Tab) 81 mg PO DAILY [facility] Last Admin: 08/01/21 09:25 Dose: 81 mg Calcium/Vitamin D (Calcium Carbonate/Vitamin D3 500 Mg-200 Unit Tab) 1 each PO DAILY [facility] Last Admin: 08/01/21 09:25 Dose: 1 each Clonazepam (Clonazepam 0.5 Mg Tab) 1 mg PO BID [facility] Last Admin: 08/01/21 21:06 Dose: 1 mg Docusate Sodium (Docusate Sodium 100 Mg Cap) 100 mg PO QDAY [facility] Last Admin: 08/01/21 09:25 Dose: 100 mg Ferrous Sulfate (Ferrous Sulfate 325 Mg Tab) 325 mg PO DAILY [facility] Last Admin: 08/01/21 09:24 Dose: 325 mg Hydroxyzine Pamoate (Hydroxyzine Pamoate 25 Mg Cap) 25 mg PO Q6H PRN PRN Reason: Anxiety Lisinopril (Lisinopril 5 Mg Tab) 5 mg PO DAILY [facility] Last Admin: 08/01/21 09:25 Dose: 5 mg Magnesium Hydroxide (Magnesium Hydroxide (Mom) Oral Liqd Udc) 30 ml PO QDAY PRN PRN Reason: Constipation Melatonin (Melatonin 5 Mg Tab) 5 mg PO QHS PRN PRN Reason: Sleep Last Admin: 08/01/21 21:06 Dose: 5 mg Pantoprazole Sodium (Pantoprazole 40 Mg Tab) 40 mg PO QDAY [facility] Last Admin: 08/01/21 09:25 Dose: 40 mg Pravastatin Sodium (Pravastatin 80 Mg Tab) 80 mg PO QHS [facility] Last Admin: 08/01/21 21:06 Dose: 80 mg Trazodone HCl (Trazodone 50 Mg Tab) 75 mg PO QHS [facility] Last Admin: 08/01/21 21:06 Dose: 75 mg Venlafaxine HCl (Venlafaxine 37.5 Mg Tab) 37.5 mg PO DAILY [facility] Last Admin: 08/01/21 09:24 Dose: 37.5 mg Results - Results Labs/Vitals: Laboratory Last Values WBC 8.1 K/mm3 (4.5-11.0) 07/30/21 19:18 RBC 5.11 M/mm3 (3.65-5.03) H 07/30/21 19:18 Hgb 10.3 gm/dl (10.1-14.3) 07/30/21 19:18 Hct 34.7 % (30.3-42.9) 07/30/21 19:18 MCV 68 fl (79-97) L 07/30/21 19:18 MCH 20 pg (28-32) L 07/30/21 19:18 MCHC 30 % (30-34) 07/30/21 19:18 RDW 19.6 % (13.2-15.2) H 07/30/21 19:18 Plt Count 712 K/mm3 (140-440) H 07/30/21 19:18 Lymph % (Auto) 17.0 % (13.4-35.0) 07/30/21 19:18 [place] % (Auto) 8.8 % (0.0-7.3) H 07/30/21 19:18 Eos % (Auto) 3.9 % (0.0-4.3) 07/30/21 19:18 Baso % (Auto) 1.1 % (0.0-1.8) 07/30/21 19:18 Lymph # (Auto) 1.4 K/mm3 (1.2-5.4) 07/30/21 19:18 [place] # (Auto) 0.7 K/mm3 (0.0-0.8) 07/30/21 19:18 Eos # (Auto) 0.3 K/mm3 (0.0-0.4) 07/30/21 19:18 Baso # (Auto) 0.1 K/mm3 (0.0-0.1) 07/30/21 19:18 Seg Neutrophils % 69.2 % (40.0-70.0) 07/30/21 19:18 Seg Neutrophils # 5.6 K/mm3 (1.8-7.7) 07/30/21 19:18 Sodium 142 mmol/L (137-145) 07/30/21 19:18 Potassium 4.2 mmol/L (3.6-5.0) 07/30/21 19:18 Chloride 102.7 mmol/L (98-107) 07/30/21 19:18 Carbon Dioxide 25 mmol/L (22-30) 07/30/21 19:18 Anion Gap 19 mmol/L 07/30/21 19:18 BUN 44 mg/dL (7-17) H 07/30/21 19:18 Creatinine 1.2 mg/dL (0.6-1.2) 07/30/21 19:18 Estimated GFR 43 ml/min 07/30/21 19:18 BUN/Creatinine Ratio 37 % 07/30/21 19:18 Glucose 105 mg/dL (65-100) H 07/30/21 19:18 Hemoglobin A1c 5.6 % (4-6) 07/30/21 19:18 Calcium 10.2 mg/dL (8.4-10.2) 07/30/21 19:18 Total Bilirubin 0.40 mg/dL (0.1-1.2) 07/30/21 19:18 AST 25 units/L (5-40) 07/30/21 19:18 ALT 19 units/L (7-56) 07/30/21 19:18 Alkaline Phosphatase 69 units/L (35-129) 07/30/21 19:18 Total Protein 6.4 g/dL (6.3-8.2) 07/30/21 19:18 Albumin 3.9 g/dL (3.9-5) 07/30/21 19:18 Albumin/Globulin Ratio 1.6 % 07/30/21 19:18 TSH 1.330 mlU/mL (0.270-4.200) 07/30/21 19:18 Urine Color Yellow (Yellow) 07/30/21 17:23 Urine Turbidity Clear (Clear) 07/30/21 17: Urine pH 5.0 (5.0-7.0) 07/30/21 17: Ur Specific [place] 1.017 (1.003-1.030) 07/30/21 17: Urine Protein <15 mg/dl mg/dL (Negative) 07/30/21 17: Urine Glucose (UA) Neg mg/dL (Negative) 07/30/21 17: Urine Ketones Neg mg/dL (Negative) 07/30/21 17: Urine Blood Neg (Negative) 07/30/21 17: Urine Nitrite Neg (Negative) 07/30/21: Ur Reducing Substances Not Reportable 07/30/21 17: Urine Bilirubin Neg (Negative) 07/30/21 17: Urine Ictotest Not Reportable 07/30/21 17: Urine Urobilinogen < 2.0 mg/dL (<2.0) 07/30/21 17:23 Ur Leukocyte Esterase Tr (Negative) 07/30/21 17:23 Urine WBC (Auto) 7.0 /HPF (0.0-6.0) H 07/30/21 17:23 Urine RBC (Auto) 2.0 /HPF (0.0-6.0) 07/30/21 17: U Epithel Cells (Auto) < 1.0 /HPF (0-13.0) 07/30/21 17: Urine Mucus Few /HPF 07/30/21 17:23 Last Vital Signs Temp 99.7 F H 08/01/21 22:00 Pulse 80 08/01/21 22:00 Resp 16 08/01/21 22:00 BP 135/77 08/01/21 22:00 Pulse Ox 95 08/01/21 22:00
[2021-08-02] MEDS: clonazePAM 0.5 MG TAB PO SCH ×3 (10:00→21:28)
[2021-08-02] MEDS: DOCUSATE SODIUM 100 MG CAP PO SCH (10:23)
[2021-08-02] MEDS: ASPIRIN EC 81 MG TAB PO SCH (10:23)
[2021-08-02] MEDS: CALCIUM CARBONATE/VITAMIN D3 500 MG-200 UNIT TAB PO SCH (10:23)
[2021-08-02] MEDS: PANTOPRAZOLE 40 MG TAB PO SCH (10:24)
[2021-08-02] MEDS: FERROUS SULFATE 325 MG TAB PO SCH (10:24)
[2021-08-02] MEDS: VENLAFAXINE 37.5 MG TAB PO SCH (10:24)
[2021-08-02] MEDS: LISINOPRIL 5 MG TAB PO SCH (10:25)
[2021-08-02] MEDS: traZODone 50 MG TAB PO SCH (21:28)
[2021-08-02] MEDS: PRAVASTATIN 80 MG TAB PO SCH (21:29)
[2021-08-03] MEDS: FERROUS SULFATE 325 MG TAB PO SCH (09:12)
[2021-08-03] MEDS: VENLAFAXINE 37.5 MG TAB PO SCH (09:12)
[2021-08-03] MEDS: clonazePAM 0.5 MG TAB PO SCH ×2 (09:12→21:22)
[2021-08-03] MEDS: CALCIUM CARBONATE/VITAMIN D3 500 MG-200 UNIT TAB PO SCH (09:12)
[2021-08-03] MEDS: PANTOPRAZOLE 40 MG TAB PO SCH (09:12)
[2021-08-03] MEDS: DOCUSATE SODIUM 100 MG CAP PO SCH (09:12)
[2021-08-03] MEDS: ASPIRIN EC 81 MG TAB PO SCH (09:12)
[2021-08-03] MEDS: LISINOPRIL 5 MG TAB PO SCH (09:17)
--- NOTE | 2021-08-03 09:59 | Progress Note ---
Subjective Date of service: 08/03/21 Principal diagnosis: MDD Subjective Comment: The patient was seen today. She is sitting quietly. She is calm, and cooperative. She denies SI/HI or hallucinations. REVIEW OF SYSTEMS Constitutional: Negative for weight loss ENT: Negative for stridor Respiratory: Negative for cough or hemoptysis All other systems reviewed and are negative MENTAL STATUS EXAMINATION General Appearance and Behavior: Age appropriate, good hygiene, wearing appropriate clothes. calm, cooperative, pleasant Cooperation: Cooperative Psychomotor Behavior: Psychomotor normal Mood: fine Affect and affective range: Congruent with stated mood Thought Process: impaired Thought Content: Reality oriented Speech: Normal tone and pace Suicidal Ideation: Denies Homicidal Ideation: Denies Hallucinations: Denies Delusions: None elicited Impulse Control: Limited Insight and Judgment: Limited insight and fair judgment Memory: Limited Attention: attentive Orientation: confused Assessment (1)Major depressive disorder Current Visit: Yes Status: Acute Treatment Plan Patient admitted for inpatient psychiatric evaluation, medication adjustment and close monitoring The patient's behavior, mood, sleep and appetite will be closely monitored. Patient enrolled in individual and group therapeutic sessions and encouraged to attend. Patient provided with a safe and structured environment. Patient's physical health needs will be addressed by the Hospitalist. Hospitalist Consulted Labs including CBC, CMP, Lipid profile and Hemoglobin A1C levels ordered for baseline reference Social Assessment will be completed and the Power Ballast Machine Operator will work with patient and family to ensure a suitable and safe disposition Medication adjustment will be made as clinically indicated Decrease Klonopin 0.5mg po BID No changes made today Usual Wellness Holiness/Preservation: - Start Trazodone 50 mg po QHS & 50 mg po QHS PRN between 10 PM & 2 AM for insomnia - Start Melatonin 5 mg po QHS to promote circadian rhythm The patient agreed on the treatment plan, understood the risk, benefit, alternative treatment, potential consequence of no treatment, and gave informed consent. Estimated days:5 Post hospital care: primary care provider, psychiatric provider Case staffed with Dr. Diggs Medications and Allergies Allergies Allergy/AdvReac Type Severity Reaction Status Date / Time No Known Drug Allergies Allergy Unknown Verified 07/29/21 01:30 Home Medications Medication Instructions Recorded Confirmed Last Taken Type Aspirin [[place] Aspirin EC] 81 mg PO DAILY 07/29/21 07/29/21 Unknown History Calcium Carbonate/Mag Carb 400 mg PO BID 07/29/21 07/29/21 Unknown History [Magnebind 400 Tablet] Calcium Carbonate/Vitamin D3 1 each PO DAILY 07/29/21 07/29/21 Unknown History [Calcium 600-Vit D3 400 Tablet] Ferrous Sulfate [Iron 325 MG] 325 mg PO DAILY 07/29/21 07/29/21 Unknown History Lisinopril [Zestril] 5 mg PO DAILY 07/29/21 07/29/21 Unknown History Pantoprazole [Protonix] 40 mg PO QDAY 07/29/21 07/29/21 Unknown History Simvastatin 40 mg PO HS 07/29/21 07/29/21 Unknown History clonazePAM [Klonopin] 1 mg PO BID 07/29/21 07/29/21 Unknown History Active Meds: Active Medications Acetaminophen (Acetaminophen 325 Mg Tab) 650 mg PO Q6H PRN PRN Reason: Pain, Mild (1-3) Aspirin (Aspirin Ec 81 Mg Tab) 81 mg PO DAILY [facility] Last Admin: 08/03/21 09:12 Dose: 81 mg Calcium/Vitamin D (Calcium Carbonate/Vitamin D3 500 Mg-200 Unit Tab) 1 each PO DAILY [facility] Last Admin: 08/03/21 09:12 Dose: 1 each Docusate Sodium (Docusate Sodium 100 Mg Cap) 100 mg PO QDAY [facility] Last Admin: 08/03/21 09:12 Dose: 100 mg Ferrous Sulfate (Ferrous Sulfate 325 Mg Tab) 325 mg PO DAILY [facility] Last Admin: 08/03/21 09:12 Dose: 325 mg Hydroxyzine Pamoate (Hydroxyzine Pamoate 25 Mg Cap) 25 mg PO Q6H PRN PRN Reason: Anxiety Lisinopril (Lisinopril 5 Mg Tab) 5 mg PO DAILY [facility] Last Admin: 08/03/21 09:17 Dose: 5 mg Magnesium Hydroxide (Magnesium Hydroxide (Mom) Oral Liqd Udc) 30 ml PO QDAY PRN PRN Reason: Constipation Melatonin (Melatonin 5 Mg Tab) 5 mg PO QHS PRN PRN Reason: Sleep Last Admin: 08/01/21 21:06 Dose: 5 mg Pantoprazole Sodium (Pantoprazole 40 Mg Tab) 40 mg PO QDAY [facility] Last Admin: 08/03/21 09:12 Dose: 40 mg Pravastatin Sodium (Pravastatin 80 Mg Tab) 80 mg PO QHS [facility] Last Admin: 08/02/21 21:29 Dose: 80 mg Trazodone HCl (Trazodone 50 Mg Tab) 75 mg PO QHS [facility] Last Admin: 08/02/21 21:28 Dose: 75 mg Venlafaxine HCl (Venlafaxine 37.5 Mg Tab) 37.5 mg PO DAILY [facility] Last Admin: 08/03/21 09:12 Dose: 37.5 mg Results - Results Labs/Vitals: Laboratory Last Values WBC 8.1 K/mm3 (4.5-11.0) 07/30/21 19:18 RBC 5.11 M/mm3 (3.65-5.03) H 07/30/21 19:18 Hgb 10.3 gm/dl (10.1-14.3) 07/30/21 19:18 Hct 34.7 % (30.3-42.9) 07/30/21 19:18 MCV 68 fl (79-97) L 07/30/21 19:18 MCH 20 pg (28-32) L 07/30/21 19:18 MCHC 30 % (30-34) 07/30/21 19:18 RDW 19.6 % (13.2-15.2) H 07/30/21 19:18 Plt Count 712 K/mm3 (140-440) H 07/30/21 19:18 Lymph % (Auto) 17.0 % (13.4-35.0) 07/30/21 19:18 [place] % (Auto) 8.8 % (0.0-7.3) H 07/30/21 19:18 Eos % (Auto) 3.9 % (0.0-4.3) 07/30/21 19:18 Baso % (Auto) 1.1 % (0.0-1.8) 07/30/21 19:18 Lymph # (Auto) 1.4 K/mm3 (1.2-5.4) 07/30/21 19:18 [place] # (Auto) 0.7 K/mm3 (0.0-0.8) 07/30/21 19:18 Eos # (Auto) 0.3 K/mm3 (0.0-0.4) 07/30/21 19:18 Baso # (Auto) 0.1 K/mm3 (0.0-0.1) 07/30/21 19:18 Seg Neutrophils % 69.2 % (40.0-70.0) 07/30/21 19:18 Seg Neutrophils # 5.6 K/mm3 (1.8-7.7) 07/30/21 19:18 Sodium 142 mmol/L (137-145) 07/30/21 19:18 Potassium 4.2 mmol/L (3.6-5.0) 07/30/21 19:18 Chloride 102.7 mmol/L (98-107) 07/30/21 19:18 Carbon Dioxide 25 mmol/L (22-30) 07/30/21 19:18 Anion Gap 19 mmol/L 07/30/21 19:18 BUN 44 mg/dL (7-17) H 07/30/21 19:18 Creatinine 1.2 mg/dL (0.6-1.2) 07/30/21 19:18 Estimated GFR 43 ml/min 07/30/21 19:18 BUN/Creatinine Ratio 37 % 07/30/21 19:18 Glucose 105 mg/dL (65-100) H 07/30/21 19:18 Hemoglobin A1c 5.6 % (4-6) 07/30/21 19:18 Calcium 10.2 mg/dL (8.4-10.2) 07/30/21 19:18 Total Bilirubin 0.40 mg/dL (0.1-1.2) 07/30/21 19:18 AST 25 units/L (5-40) 07/30/21 19:18 ALT 19 units/L (7-56) 07/30/21 19:18 Alkaline Phosphatase 69 units/L (35-129) 07/30/21 19:18 Total Protein 6.4 g/dL (6.3-8.2) 07/30/21 19:18 Albumin 3.9 g/dL (3.9-5) 07/30/21 19:18 Albumin/Globulin Ratio 1.6 % 07/30/21 19:18 TSH 1.330 mlU/mL (0.270-4.200) 07/30/21 19:18 Urine Color Yellow (Yellow) 07/30/21 17:23 Urine Turbidity Clear (Clear) 07/30/21 17:23 Urine pH 5.0 (5.0-7.0) 07/30/21 17:23 Ur Specific [place] 1.017 (1.003-1.030) 07/30/21 17: Urine Protein <15 mg/dl mg/dL (Negative) 07/30/21 17: Urine Glucose (UA) Neg mg/dL (Negative) 07/30/21 17: Urine Ketones Neg mg/dL (Negative) 07/30/21 17: Urine Blood Neg (Negative) 07/30/21 17: Urine Nitrite Neg (Negative) 07/30/21 17: Ur Reducing Substances Not Reportable 07/30/21 17: Urine Bilirubin Neg (Negative) 07/30/21 17: Urine Ictotest Not Reportable 07/30/21 17: Urine Urobilinogen < 2.0 mg/dL (<2.0) 07/30/21 17: Ur Leukocyte Esterase Tr (Negative) 07/30/21 17:23 Urine WBC (Auto) 7.0 /HPF (0.0-6.0) H 07/30/21 17: Urine RBC (Auto) 2.0 /HPF (0.0-6.0) 07/30/21 17: U Epithel Cells (Auto) < 1.0 /HPF (0-13.0) 07/30/21 17: Urine Mucus Few /HPF 07/30/21 17:23 Last Vital Signs Temp 98.1 F 08/03/21 09:14 Pulse 82 08/03/21 09:17 Resp 15 08/03/21 09:14 BP 143/70 08/03/21 09:17 Pulse Ox 95 08/03/21 08:21
--- NOTE | 2021-08-03 12:49 | Progress Note ---
Assessment and Plan Assessment and plan: --Hypertension; well controlled Continue current antihypertensives As needed medications --Dyslipidemia-; Lipid-lowering medications Low-cholesterol diet -- Depression Current Visit: Yes Status: Acute Management per psych -- Anxiety Current Visit: Yes Status: Acute Management per psych --s/p fall ; Fall precautions, supportive care Ambulate as tolerated --right supraorbital contusion; Wound care as needed Pain medications Contusion significantly improved -- Vascular dementia with behavioral disturbance Current Visit: Yes Status: Acute Continue supportive care --Cerebral atherosclerosis Current Visit: Yes Status: Acute Risk factor reduction, antiplatelet therapy is clinically indicated. --DVT prophylaxis ; SCDs while resting Ambulate as tolerated Patient symptoms significantly improved We will monitor the patient closely And adjust the management as needed Continue current treatment as planned Plan of care reviewed with the patient and her nurse Call us with questions History Interval history: Patient feels better no new complaints No new events reported by the nursing staff Vital signs reviewed Hospitalist Physical - Constitutional Vitals: Temp Pulse Resp BP Pulse Ox 98.1 F 82 15 143/70 95 08/03/21 09:14 08/03/21 09:17 08/03/21 09:14 08/03/21 09:17 08/03/21 08:21 General appearance: Present: no acute distress, well-nourished - EENT Eyes: Present: PERRL, EOM intact - Neck Neck: Present: supple, normal ROM - Respiratory Respiratory effort: normal Respiratory: bilateral: diminished, negative: rales, rhonchi, wheezing - Cardiovascular Rhythm: regular Heart Sounds: Present: S1 & S2 - Extremities Extremities: no ischemia, No edema - Abdominal General gastrointestinal: soft, non-tender, non-distended, normal bowel sounds - Integumentary Integumentary: Present: clear, warm - Psychiatric Psychiatric: appropriate mood/affect, cooperative - Neurologic Neurologic: moves all extremities Results - Labs CBC & Chem 7: 07/30/21 19:18 07/30/21 19:18 Labs: Laboratory Last Values WBC 8.1 K/mm3 (4.5-11.0) 07/30/21 19:18 RBC 5.11 M/mm3 (3.65-5.03) H 07/30/21 19:18 Hgb 10.3 gm/dl (10.1-14.3) 07/30/21 19:18 Hct 34.7 % (30.3-42.9) 07/30/21 19:18 MCV 68 fl (79-97) L 07/30/21 19:18 MCH 20 pg (28-32) L 07/30/21 19:18 MCHC 30 % (30-34) 07/30/21 19:18 RDW 19.6 % (13.2-15.2) H 07/30/21 19:18 Plt Count 712 K/mm3 (140-440) H 07/30/21 19:18 Lymph % (Auto) 17.0 % (13.4-35.0) 07/30/21 19:18 [place] % (Auto) 8.8 % (0.0-7.3) H 07/30/21 19:18 Eos % (Auto) 3.9 % (0.0-4.3) 07/30/21 19:18 Baso % (Auto) 1.1 % (0.0-1.8) 07/30/21 19:18 Lymph # (Auto) 1.4 K/mm3 (1.2-5.4) 07/30/21 19:18 [place] # (Auto) 0.7 K/mm3 (0.0-0.8) 07/30/21 19:18 Eos # (Auto) 0.3 K/mm3 (0.0-0.4) 07/30/21 19:18 Baso # (Auto) 0.1 K/mm3 (0.0-0.1) 07/30/21 19:18 Seg Neutrophils % 69.2 % (40.0-70.0) 07/30/21 19:18 Seg Neutrophils # 5.6 K/mm3 (1.8-7.7) 07/30/21 19:18 Sodium 142 mmol/L (137-145) 07/30/21 19:18 Potassium 4.2 mmol/L (3.6-5.0) 07/30/21 19:18 Chloride 102.7 mmol/L (98-107) 07/30/21 19:18 Carbon Dioxide 25 mmol/L (22-30) 07/30/21 19:18 Anion Gap 19 mmol/L 07/30/21 19:18 BUN 44 mg/dL (7-17) H 07/30/21 19:18 Creatinine 1.2 mg/dL (0.6-1.2) 07/30/21 19:18 Estimated GFR 43 ml/min 07/30/21 19:18 BUN/Creatinine Ratio 37 % 07/30/21 19:18 Glucose 105 mg/dL (65-100) H 07/30/21 19:18 Hemoglobin A1c 5.6 % (4-6) 07/30/21 19:18 Calcium 10.2 mg/dL (8.4-10.2) 07/30/21 19:18 Total Bilirubin 0.40 mg/dL (0.1-1.2) 07/30/21 19:18 AST 25 units/L (5-40) 07/30/21 19:18 ALT 19 units/L (7-56) 07/30/21 19:18 Alkaline Phosphatase 69 units/L (35-129) 07/30/21 19:18 Total Protein 6.4 g/dL (6.3-8.2) 07/30/21 19:18 Albumin 3.9 g/dL (3.9-5) 07/30/21 19:18 Albumin/Globulin Ratio 1.6 % 07/30/21 19:18 TSH 1.330 mlU/mL (0.270-4.200) 07/30/21 19:18 Urine Color Yellow (Yellow) 07/30/21 17:23 Urine Turbidity Clear (Clear) 07/30/21 17:23 Urine pH 5.0 (5.0-7.0) 07/30/21 17:23 Ur Specific [place] 1.017 (1.003-1.030) 07/30/21 17:23 Urine Protein <15 mg/dl mg/dL (Negative) 07/30/21 17:23 Urine Glucose (UA) Neg mg/dL (Negative) 07/30/21 17:23 Urine Ketones Neg mg/dL (Negative) 07/30/21 17:23 Urine Blood Neg (Negative) 07/30/21 17: Urine Nitrite Neg (Negative) 07/30/21 17:23 Ur Reducing Substances Not Reportable 07/30/21 17:23 Urine Bilirubin Neg (Negative) 07/30/21 17: Urine Ictotest Not Reportable 07/30/21 17: Urine Urobilinogen < 2.0 mg/dL (<2.0) 07/30/21 17:23 Ur Leukocyte Esterase Tr (Negative) 07/30/21 17:23 Urine WBC (Auto) 7.0 /HPF (0.0-6.0) H 07/30/21 17:23 Urine RBC (Auto) 2.0 /HPF (0.0-6.0) 07/30/21 17:23 U Epithel Cells (Auto) < 1.0 /HPF (0-13.0) 07/30/21 17:23 Urine Mucus Few /HPF 07/30/21 17:23 Rushing/IV: Voiding Method Toilet Active Medications - Current Medications Current Medications: Generic Name Dose Route Start Last Admin Trade Name Freq PRN Reason Stop Dose Admin Acetaminophen 650 mg 07/29/21 01:47 Acetaminophen 325 Mg Tab PO Q6H PRN Pain, Mild (1-3) Aspirin 81 mg 07/29/21 10:00 08/03/21 09:12 Aspirin Ec 81 Mg Tab PO 81 mg DAILY ANGEL Administration Calcium/Vitamin D 1 each 07/29/21 10:00 08/03/21 09:12 Calcium Carbonate/Vitamin D3 500 Mg-200 Unit Tab PO 1 each DAILY ANGEL Administration Clonazepam 0.5 mg 08/03/21 22:00 Clonazepam 0.5 Mg Tab PO BID ANGEL Docusate Sodium 100 mg 07/30/21 10:00 08/03/21 09:12 Docusate Sodium 100 Mg Cap PO 100 mg QDAY ANGEL Administration Ferrous Sulfate 325 mg 07/29/21 10:00 08/03/21 09:12 Ferrous Sulfate 325 Mg Tab PO 325 mg DAILY ANGEL Administration Hydroxyzine Pamoate 25 mg 07/30/21 10:00 Hydroxyzine Pamoate 25 Mg Cap PO Q6H PRN Anxiety Lisinopril 5 mg 07/29/21 10:00 08/03/21 09:17 Lisinopril 5 Mg Tab PO 5 mg DAILY ANGEL Administration Magnesium Hydroxide 30 ml 07/29/21 17:30 Magnesium Hydroxide (Mom) Oral Liqd Udc PO QDAY PRN Constipation Melatonin 5 mg 07/29/21 01:49 08/01/21 21:06 Melatonin 5 Mg Tab PO 5 mg QHS PRN Administration Sleep Pantoprazole Sodium 40 mg 07/29/21 10:00 08/03/21 09:12 Pantoprazole 40 Mg Tab PO 40 mg QDAY ANGEL Administration Pravastatin Sodium 80 mg 07/29/21 22:00 08/02/21 21:29 Pravastatin 80 Mg Tab PO 80 mg QHS ANGEL Administration Trazodone HCl 75 mg 08/01/21 22:00 08/02/21 21:28 Trazodone 50 Mg Tab PO 75 mg QHS ANGEL Administration Venlafaxine HCl 37.5 mg 07/30/21 11:00 08/03/21 09:12 Venlafaxine 37.5 Mg Tab PO 37.5 mg DAILY ANGEL Administration
[2021-08-03] MEDS: traZODone 50 MG TAB PO SCH (21:22)
[2021-08-03] MEDS: PRAVASTATIN 80 MG TAB PO SCH (21:22)
[2021-08-04 08:50] VITALS: BP 136/62
[2021-08-04] MEDS: CALCIUM CARBONATE/VITAMIN D3 500 MG-200 UNIT TAB PO SCH (09:09)
[2021-08-04] MEDS: ASPIRIN EC 81 MG TAB PO SCH (09:09)
[2021-08-04] MEDS: LISINOPRIL 5 MG TAB PO SCH (09:10)
[2021-08-04] MEDS: clonazePAM 0.5 MG TAB PO SCH (09:10)
[2021-08-04] MEDS: VENLAFAXINE 37.5 MG TAB PO SCH (09:10)
[2021-08-04] MEDS: FERROUS SULFATE 325 MG TAB PO SCH (09:10)
[2021-08-04] MEDS: PANTOPRAZOLE 40 MG TAB PO SCH (09:10)
[2021-08-04] MEDS: DOCUSATE SODIUM 100 MG CAP PO SCH (09:13)
--- NOTE | 2021-08-04 09:41 | Discharge Summary ---
Providers - Providers Date of Admission: 07/29/21 02:45 Date of discharge: 08/04/21 Attending physician: MAIN DIXON MD 07/29/21 01:38 Consult to Physician [CONS] Routine Comment: Consulting Provider: MALISSA AMARAL Physician Instructions: Please manage existing conditions Reason For Exam: New admission consult Primary care physician: ANIMAL DOCTOR Hospitalization Reason for admission: OD Admitting Diagnosis: F33.9 - MAJOR DEPRESSIVE DISORDER, RECURRENT, UNSPECIFIED Condition: Stable Hospital course: The patient was provided inpatient psychiatric treatment with safe and supportive environment, group/individual therapy, psychiatric medication, medication adjustment, adverse effect monitor, medical evaluation, medical treatment, social service assessment, social support meeting, placement assessment and psycho-education. The patients mood, cognition, behavior, motivation, compliance to treatment and appreciation on family/social support are improved and stabilized. At the time of discharge, the patient had no suicidal ideas, no homicidal ideas, no aggressive thoughts, no endangering behavior and no debilitating adverse effects. The patient agreed on the treatment plan, understood the risk, benefit, alternative treatment, potential consequence of no treatment, and gave informed consent. 07/30/21:The patient was seen this morning. The patient is crying and asking about what happened to her face " who did this to my face." The patient endorsed depression and is confused. She denies any current suicidal/homicidal ideation and denies hallucinations. 07/31/21: The patient was seen this morning. She presents in good spirits. She states sleep as fair. The patient denies being depressed or having excessive anxiety. The patient denies any current suicidal/homicidal ideation and denies hallucinations. This health technical writer spoke with the patient's son Dr Badillo and he agrees with the current treatment plan. Plan to discharge by Wednesday. 08/01 The patient was seen today. She is confused. She is calm, cooperative and pleasant. She is sitting in the dayroom reading a book. She says "I'm doing fine" when asked. She denies SI/HI or hallucinations of any kind. Staff says the patient has some difficulty sleeping. Although the patient currently denies SI. She had a recent suicidal attempt by OD. Will continue to treat and monitor her to ensure safety upon discharge. Spoke with the patient's son about the patient's progress, treatment plan and discharge plan. He agreed with the treatment plan, and was happy to hear that his mother was doing better. He says he's ready to get her home. I informed him that she would be discharged on Wednesday, and we were monitoring her to ensure her safety since she had a recent suicidal attempt. He was in full agreement of this. He say he can pick his mother up Wednesday around 2 pm. 08/02 The patient was seen today. She is sitting quietly in the dayroom. She is calm, and cooperative. She is a/o x 3. She denies SI/HI and hallucinations of any kind. The patient says she slept "straight through the night." 08/03 The patient was seen today. She is sitting quietly. She is calm, and cooperative. She denies SI/HI or hallucinations. 08/04 The patient was seen today. She is calm, cooperative and pleasant. She denies SI/HI or hallucinations of any kind. Disposition: HOME / SELF CARE / HOMELESS Time spent for discharge: 35 Allergies/Adverse Reactions: Allergies No Known Drug Allergies Allergy (Verified 07/29/21 01:30) Unknown Vital Signs: Last Vital Signs Temp 98.6 F 08/04/21 08:23 Pulse 85 08/04/21 09:10 Resp 20 08/04/21 08:23 BP 136/62 08/04/21 09:10 Pulse Ox 94 08/04/21 08:23 Last Lab: Laboratory Last Values WBC 8.1 K/mm3 (4.5-11.0) 07/30/21 19:18 RBC 5.11 M/mm3 (3.65-5.03) H 07/30/21 19:18 Hgb 10.3 gm/dl (10.1-14.3) 07/30/21 19:18 Hct 34.7 % (30.3-42.9) 07/30/21 19:18 MCV 68 fl (79-97) L 07/30/21 19:18 MCH 20 pg (28-32) L 07/30/21 19:18 MCHC 30 % (30-34) 07/30/21 19:18 RDW 19.6 % (13.2-15.2) H 07/30/21 19:18 Plt Count 712 K/mm3 (140-440) H 07/30/21 19:18 Lymph % (Auto) 17.0 % (13.4-35.0) 07/30/21 19:18 [place] % (Auto) 8.8 % (0.0-7.3) H 07/30/21 19:18 Eos % (Auto) 3.9 % (0.0-4.3) 07/30/21 19:18 Baso % (Auto) 1.1 % (0.0-1.8) 07/30/21 19:18 Lymph # (Auto) 1.4 K/mm3 (1.2-5.4) 07/30/21 19:18 [place] # (Auto) 0.7 K/mm3 (0.0-0.8) 07/30/21 19:18 Eos # (Auto) 0.3 K/mm3 (0.0-0.4) 07/30/21 19:18 Baso # (Auto) 0.1 K/mm3 (0.0-0.1) 07/30/21 19:18 Seg Neutrophils % 69.2 % (40.0-70.0) 07/30/21 19:18 Seg Neutrophils # 5.6 K/mm3 (1.8-7.7) 07/30/21 19:18 Sodium 142 mmol/L (137-145) 07/30/21 19:18 Potassium 4.2 mmol/L (3.6-5.0) 07/30/21 19:18 Chloride 102.7 mmol/L (98-107) 07/30/21 19:18 Carbon Dioxide 25 mmol/L (22-30) 07/30/21 19:18 Anion Gap 19 mmol/L 07/30/21 19:18 BUN 44 mg/dL (7-17) H 07/30/21 19:18 Creatinine 1.2 mg/dL (0.6-1.2) 07/30/21 19:18 Estimated GFR 43 ml/min 07/30/21 19:18 BUN/Creatinine Ratio 37 % 07/30/21 19:18 Glucose 105 mg/dL (65-100) H 07/30/21 19:18 Hemoglobin A1c 5.6 % (4-6) 07/30/21 19:18 Calcium 10.2 mg/dL (8.4-10.2) 07/30/21 19:18 Total Bilirubin 0.40 mg/dL (0.1-1.2) 07/30/21 19:18 AST 25 units/L (5-40) 07/30/21 19:18 ALT 19 units/L (7-56) 07/30/21 19:18 Alkaline Phosphatase 69 units/L (35-129) 07/30/21 19:18 Total Protein 6.4 g/dL (6.3-8.2) 07/30/21 19:18 Albumin 3.9 g/dL (3.9-5) 07/30/21 19:18 Albumin/Globulin Ratio 1.6 % 07/30/21 19:18 TSH 1.330 mlU/mL (0.270-4.200) 07/30/21 19:18 Urine Color Yellow (Yellow) 07/30/21 17: Urine Turbidity Clear (Clear) 07/30/21 17: Urine pH 5.0 (5.0-7.0) 07/30/21: Ur Specific [place] 1.017 (1.003-1.030) 07/30/21 17: Urine Protein <15 mg/dl mg/dL (Negative) 07/30/21 17:23 Urine Glucose (UA) Neg mg/dL (Negative) 07/30/21 17: Urine Ketones Neg mg/dL (Negative) 07/30/21 17: Urine Blood Neg (Negative) 07/30/21 17: Urine Nitrite Neg (Negative) 07/30/21 17:23 Ur Reducing Substances Not Reportable 07/30/21: Urine Bilirubin Neg (Negative) 07/30/21 17: Urine Ictotest Not Reportable 07/30/21 17: Urine Urobilinogen < 2.0 mg/dL (<2.0) 07/30/21 17:23 Ur Leukocyte Esterase Tr (Negative) 07/30/21 17: Urine WBC (Auto) 7.0 /HPF (0.0-6.0) H 07/30/21 17: Urine RBC (Auto) 2.0 /HPF (0.0-6.0) 07/30/21 17: U Epithel Cells (Auto) < 1.0 /HPF (0-13.0) 07/30/21 17: Urine Mucus Few /HPF 07/30/21 17:23 Core Measure Documentation - Palliative Care Palliative Care/ Comfort Measures: Not Applicable - Core Measures Any of the following diagnoses?: none Exam - Constitutional Vitals: Temp Pulse Resp BP Pulse Ox 98.6 F 85 20 136/62 94 08/04/21 08:23 08/04/21 09:10 08/04/21 08:23 08/04/21 09:10 08/04/21 08:23 General appearance: Present: no acute distress - EENT Eyes: Present: PERRL, EOM intact ENT: hearing intact, clear oral mucosa - Neck Neck: Present: supple, normal ROM - Respiratory Respiratory effort: normal Plan Activity: advance as tolerated Weight Bearing Status: Weight Bear as Tolerated Care Plan Goals: Maintain good and stable mental health Plan of Treatment: The patient should be compliant with medications, not to use drugs and not to drink alcohol.The patient understands that if suicidal ideas, homicidal ideas, or any endangering thoughts/behavior arise, they should immediately seek for emergent assistance including but not limited to crisis hot line and emergency room. Follow up with outpatient Psychiatrist and PCP within 7 - 14 days of discharge. Assessment: Major Depressive Disorder Follow up with: PRIMARY CARE, [Primary Care Provider] - 7 Days Prescriptions: traZODone [Desyrel] 75 mg PO QHS #45 tablet Melatonin [Melatonin 5MG TAB] 5 mg PO QHS PRN #30 tablet PRN Reason: Sleep Venlafaxine [Effexor 37.5mg tab] 37.5 mg PO DAILY #30 tablet clonazePAM [KlonoPIN] 0.5 mg PO BID #60 tablet hydrOXYzine PAMOATE [Vistaril] 25 mg PO Q6H PRN #120 capsule PRN Reason: Anxiety
== END 2021-08-04 11:15 | disposition home or self-care (01) | DRG 885 ==
LOC: 3A 16:12 → UNDOADMIN 16:12 → 5A 07-29 02:45
PROVIDERS: ADMIT Psychiatry & Neurology Psychiatry; ATTEND Psychiatry & Neurology Psychiatry
DX: F33.9 Major depressive disorder, recurrent, unspecified (principal); F01.51 Vascular dementia, unspecified severity, with behavioral disturbance; R45.851 Suicidal ideations; I67.2 Cerebral atherosclerosis; F41.9 Anxiety disorder, unspecified; W18.39XA Other fall on same level, initial encounter; Y93.89 Activity, other specified; Y92.89 Other specified places as the place of occurrence of the external cause; Y99.8 Other external cause status; S05.11XA Contusion of eyeball and orbital tissues, right eye, initial encounter; E78.5 Hyperlipidemia, unspecified; I10 Essential (primary) hypertension; Z79.82 Long term (current) use of aspirin; Z79.899 Other long term (current) drug therapy
CPT/HCPCS: 36415; 80053; 81001; 83036; 84443; 85025; G0378